=== PATIENT | female | born 1965 | race Caucasian/White ===

== ENCOUNTER → 2020-04-01 | Outpatient (CLI) | payer OTHER ==
[2020-04-01 11:26] LABS: BASOPHILS ABSOLUTE AUTO 0.03 K/mm3 (0.00-0.23); BASOPHILS PERCENT AUTO 1 % (0-2); EOSINOPHILS ABSOLUTE AUTO 0.07 K/mm3 (0.00-0.68); EOSINOPHILS PERCENT AUTO 1 % (0-6); Hematocrit 31.1 % (33.0-51.0); IMMATURE GRAN ABSOLUTE AUTO 0.02 K/mm3 (0.00-0.10); IMMATURE GRAN PERCENT AUTO 0 % (0-1); LYMPHOCYTES ABSOLUTE AUTO 0.46 K/mm3 (0.84-5.20); LYMPHOCYTES PERCENT AUTO 8 % (21-46); MONOCYTES ABSOLUTE AUTO 0.39 K/mm3 (0.16-1.47); MONOCYTES PERCENT AUTO 7 % (4-13); Mean Corpuscular HGB 31.6 pg (26.0-34.0); Mean Corpuscular HGB Conc 32.2 g/dL (31.5-36.5); Mean Corpuscular Volume 98 fL (80-100); NEUTROPHILS ABSOLUTE AUTO 4.73 K/mm3 (1.96-9.15); NEUTROPHILS PERCENT AUTO 83 % (41-73); Platelet Count 129 K/mm3 (150-400); RDW Coefficient Variation 12.4 % (11.7-14.2); RDW Standard Deviation 45.1 fL (35.1-46.3); Red Blood Cell Count 3.16 M/mm3 (3.80-5.20)
[2020-04-03 18:41] LABS: Percent Saturation 28.5 % (15.0-50.0)
== END | disposition home or self-care (01) ==
LOC: LAB 10:30 → LAB SHORT 10:30
PROVIDERS: Internal Medicine
DX: N18.6 End stage renal disease (principal)
CPT/HCPCS: 82728; 83540; 83550; 85025

== ENCOUNTER 2020-06-13 04:50 | Inpatient (IN) | payer OTHER ==
[~2020-06-13] VITALS: Ht 152.4 cm; Wt 54.0 kg
[~2020-06-13 04:50] MED LIST: ALBU2.5V5 INH; AMLO5 PT; CARV3.125 PT; LEFL20 PT; LEVFLO500 PT; METH10 PO; METH40 PT; OMEP20ER; Prednisone10 MG PO; SYMBICORT 80-10.2 GM INH; TORS10 PT; XELJANZ XR11 MG; XELJANZ XR11 MG PO
[2020-06-13 05:09] LABS: PCO2 Arterial 66.2 mmHg (35-45); PO2 Arterial 73.6 mmHg (80-100); pH Blood Arterial 7.26 (7.35-7.45)
[2020-06-13 05:13] LABS: BASOPHILS ABSOLUTE AUTO 0.06 K/mm3 (0.00-0.23); BASOPHILS PERCENT AUTO 0 % (0-2); EOSINOPHILS ABSOLUTE AUTO 0.08 K/mm3 (0.00-0.68); EOSINOPHILS PERCENT AUTO 0 % (0-6); Hematocrit 45.7 % (33.0-51.0); Hemoglobin 14.1 g/dL (11.5-16.0); IMMATURE GRAN ABSOLUTE AUTO 0.28 K/mm3 (0.00-0.10); IMMATURE GRAN PERCENT AUTO 1 % (0-1); LYMPHOCYTES ABSOLUTE AUTO 1.78 K/mm3 (0.84-5.20); LYMPHOCYTES PERCENT AUTO 7 % (21-46); MONOCYTES ABSOLUTE AUTO 1.33 K/mm3 (0.16-1.47); MONOCYTES PERCENT AUTO 5 % (4-13); Mean Corpuscular HGB 31.4 pg (26.0-34.0); Mean Corpuscular HGB Conc 30.9 g/dL (31.5-36.5); Mean Corpuscular Volume 102 fL (80-100); Mean Platelet Volume 11.6 fL (9.1-12.4); NEUTROPHILS ABSOLUTE AUTO 23.39 K/mm3 (1.96-9.15); NEUTROPHILS PERCENT AUTO 87 % (41-73); Platelet Count 220 K/mm3 (150-400); RDW Coefficient Variation 12.7 % (11.7-14.2); Red Blood Cell Count 4.49 M/mm3 (3.80-5.20); White Blood Cell Count 26.92 K/mm3 (4.00-11.30)
[2020-06-13 05:54] LABS: Albumin, Blood 3.1 g/dL (3.4-5.0); Albumin/Globulin Ratio 0.7 (0.8-1.8); Bilirubin, Total 0.4 mg/dL (0.1-1.0); Bun/Creatinine Ratio 21.3 (12.0-20.0); Calcium, Blood 8.8 mg/dL (8.5-10.1); Creatinine, Blood 3.05 mg/dL (0.40-1.00); Globulin, Blood 4.6 g/dL (2.2-4.0); Potassium, Blood 4.9 mmol/L (3.5-5.5); Total Protein, Blood 7.7 g/dL (6.4-8.2)
--- NOTE | 2020-06-13 09:15 | NUR ---
INITIAL ASSESSMENT PATIENT ARRIVED TO UNIT AT 0910. PATIENT ALERT AND ORIENTED X 4, AFEBRILE. PATIENT HAS QUIET, RASPY VOICE. PATIENT SBA. LUNGS DIMINISHED T/O. PATIENT SATTING 90% AND GREATER ON 4 L OXYMIZER. SOB NOTED WITH EXERTION. SR/ ST, HR LOW 100S. SBP 140S. TRACE BLE EDEMA NOTED. GI WNL. WNL. FISTULA TO L UPPER ARM- + BRUIT AND THRILL. NS INFUSING AT 75 MLS/ HOUR. BED LOW, CALL LIGHT IN REACH. PATIENT ORIENTED TO UNIT, ROOM AND CALL LIGHT. PATIENT HAS NO COMPLAINTS AT THIS TIME. WILL CONTINUE TO MONITOR.
[2020-06-13 10:35] LABS: PCO2 Arterial 46.8 mmHg (35-45); PO2 Arterial 64.7 mmHg (80-100); pH Blood Arterial 7.36 (7.35-7.45)
[2020-06-13 11:28] LABS: Adenovirus Not Detected (NOT DETECT); Bordetella pertussis Not Detected (NOT DETECT); Chlamydophila pneumoniae Not Detected (NOT DETECT); Coronavirus 229E Not Detected (NOT DETECT); Coronavirus HKU1 Not Detected (NOT DETECT); Coronavirus NL63 Not Detected (NOT DETECT); Coronavirus OC43 Not Detected (NOT DETECT); Human Metapneumovirus Not Detected (NOT DETECT); Human Rhinovirus/Enterovirus Not Detected (NOT DETECT); Influenza A/2009-H1 Not Detected (NOT DETECT); Influenza A/H1 Not Detected (NOT DETECT); Influenza A/H3 Not Detected (NOT DETECT); Influenza B Not Detected (NOT DETECT); Mycoplasma pneumoniae Not Detected (NOT DETECT); Parainfluenza Virus 1 Not Detected (NOT DETECT); Parainfluenza Virus 2 Not Detected (NOT DETECT); Parainfluenza Virus 3 Not Detected (NOT DETECT); Parainfluenza Virus 4 Not Detected (NOT DETECT); Respiratory Syncytial Virus Not Detected (NOT DETECT); SARS-Cov-2 (COVID-19), BioFire Not Detected (NOT DETECT)
--- NOTE | 2020-06-13 11:33 | NUR ---
PATIENT AFEBRILE. PATIENT SATTING 90% AND GREATER ON 3 L NC. SBP IN THE 150S. HR IN THE 90S. NO OTHER ACUTE CHANGES TO NOTE ON AT THIS TIME.
--- NOTE | 2020-06-13 15:45 | NUR ---
PATIENT AFEBRILE. SBP IN THE 140S. HR IN THE 90S. NO OTHER ACUTE CHANGES TO NOTE ON AT THIS TIME. NO COMPLAINTS.
--- NOTE | 2020-06-13 18:48 | NUR ---
SHIFT SUMMARY PATIENT REMAINED ALERT AND ORIENTED X 4. PATIENT REMAINED AFEBRILE. PATIENT DECREASED FROM 4 L OXYMIZER AT BEGINNING OF SHIFT TO 3 L NC BY END OF SHIFT. LUNGS REMAINED DIMINISHED T/O. PATIENT REMAINED SR TO ST, HR 90S TO LOW 100S. SBP 140S TO 150S. GI WNL. PATIENT HAS VERY LARGE APPETITE. PATIENT HAD SPEECH THERAPY EVAL AND PLACED ON REGULAR, MECHANICAL SOFT DIET. WNL. PATIENT SBA TO BSC. NS REMAINS INFUSING AT 75 MLS/ HOUR. PATIENT RECEIVED CLINDAMYCIN IV THIS SHIFT. PATIENT HAS NO COMPLAINTS AT THIS TIME. BED LOW, CALL LIGHT IN REACH. REPORT WILL BE GIVEN TO ONCOMING TELEMARKETING REPRESENTATIVE NURSE SHORTLY.
[2020-06-14 04:46] LABS: BASOPHILS ABSOLUTE AUTO 0.01 K/mm3 (0.00-0.23); BASOPHILS PERCENT AUTO 0 % (0-2); EOSINOPHILS PERCENT AUTO 0 % (0-6); Hematocrit 38.8 % (33.0-51.0); Hemoglobin 11.8 g/dL (11.5-16.0); IMMATURE GRAN PERCENT AUTO 1 % (0-1); LYMPHOCYTES ABSOLUTE AUTO 0.16 K/mm3 (0.84-5.20); LYMPHOCYTES PERCENT AUTO 2 % (21-46); MONOCYTES PERCENT AUTO 2 % (4-13); Mean Corpuscular HGB 31.1 pg (26.0-34.0); Mean Corpuscular HGB Conc 30.4 g/dL (31.5-36.5); Mean Corpuscular Volume 102 fL (80-100); Mean Platelet Volume 11.8 fL (9.1-12.4); NEUTROPHILS ABSOLUTE AUTO 10.04 K/mm3 (1.96-9.15); NEUTROPHILS PERCENT AUTO 96 % (41-73); Platelet Count 131 K/mm3 (150-400); RDW Coefficient Variation 12.7 % (11.7-14.2); RDW Standard Deviation 48.1 fL (35.1-46.3); White Blood Cell Count 10.51 K/mm3 (4.00-11.30)
[2020-06-14 05:02] LABS: Albumin, Blood 2.6 g/dL (3.4-5.0); Albumin/Globulin Ratio 0.7 (0.8-1.8); Bilirubin, Total 0.3 mg/dL (0.1-1.0); Bun/Creatinine Ratio 21.4 (12.0-20.0); Calcium, Blood 8.2 mg/dL (8.5-10.1); Creatinine, Blood 3.09 mg/dL (0.40-1.00); Globulin, Blood 3.7 g/dL (2.2-4.0); Potassium, Blood 5.8 mmol/L (3.5-5.5); Total Protein, Blood 6.3 g/dL (6.4-8.2)
--- NOTE | 2020-06-14 06:51 | NUR ---
patient with an extensive medical history [place] for shortness of breath in respiratory distress who is recently discharged for pneumonia. She was admitted for a COPD exacerbation and placed on Covid rule out precautions. The patient had no acute changes or events overnight, the patient remain stable. Plan for this patient is a speech language pathology evaluation to evaluate for possible aspiration.
--- NOTE | 2020-06-14 18:34 | NUR ---
SHIFT SUMMARY PT A&Ox4; CALM AND COOPERATIVE WITH CARE. PT VOICE HOARSE R/T THROAT CANCER. PT UP IN CHAIR THIS AM, AND RESTING IN BED FOR THE REST OF THE DAY; PT UP IND TO BSC AND SBA IN ROOM. PT REPORT HEADACHE DURING DIALYSIS; MEDICATION x1 WITH TYLENOL. PT DENIES CHEST PAIN/PRESSURE, NAUSEA AND DIZZINESS. SOB WITH EXERTION; SPO2 >90% ON 2-3L O2 VIA NC DURING SHIFT. DIALYSIS THIS AM. ELEAVTED BP NOTED. OTHER VSS. NO OTHER ACUTE CHANGES NOTED DURING SHIFT. WILL CONTINUE TO MONITOR UNTIL REPORT GIVEN TO ONCOMING RN.
--- NOTE | 2020-06-15 05:45 | NUR ---
SHIFT SUMMARY PT A&O; ELEVATED BP THIS AM, HYDRALYZINE ADMINISTERED; OTHERWISE VSS; PT DENIES CHEST PAIN; O2 SATS >93 ON 1L NC; PT C/O HEADACHE THIS AM, TYLENOL GIVEN; ICE PACK OFFERED; PT INDEPENDENT TO BSC; PO SNACKS BROUGHT TO PT PRN; PT EDUCATED ON ASPIRATION RISKS, NO STRAWS AND TAKING MEDS W/ APPLESAUCE; PT WATCHING TV AND TALKING TO FAMILY ON CELL PHONE; NO DISTRESS NOTED; NO ACUTE CHANGES THIS SHIFT; CALL LIGHT IN REACH; BED IN LOWEST POSITION; WILL CONTINUE TO MONITOR CLOSELY UNTIL HAND OFF TO DAY SHIFT RN.
--- NOTE | 2020-06-15 07:30 | NUR ---
ASSUMED CARE: PT SITTING AT SIDE OF BED WITH MANAGER PRIMARY ASSISTING TO RESTROOM. NC 1L IN AT THIS TIME. NO ACUTE NEEDS OR CONCERNS
[2020-06-15 09:11] LABS: Albumin, Blood 2.5 g/dL (3.4-5.0); Anion Gap 7 mmol/L (6-16); Blood Urea Nitrogen 46 mg/dL (8-24); Bun/Creatinine Ratio 19.8 (12.0-20.0); CO2, Blood 28 mmol/L (21-32); Calcium, Blood 8.4 mg/dL (8.5-10.1); Chloride, Blood 95 mmol/L (98-108); Creatinine, Blood 2.32 mg/dL (0.40-1.00); Glomerular Filtration Rate 23 (60-); Glucose, Blood 170 mg/dL (70-99); Phosphorus, Blood 3.6 mg/dL (2.5-4.9); Potassium, Blood 5.1 mmol/L (3.5-5.5); Sodium, Blood 130 mmol/L (136-145)
--- NOTE | 2020-06-15 12:13 | NUR ---
CERTIFIED ENDOSCOPY TECHNICIAN FROM MEDICAL FLOOR AT BEDSIDE ATTEMPTING POWERGLIDE AT THIS TIME.
--- NOTE | 2020-06-15 16:00 | NUR ---
PT TAKEN TO DAY SURGERY VIA BED BY RN
--- NOTE | 2020-06-15 16:40 | NUR ---
06/15/20 NIKOLE GUZMAN History, Chart, Medications and Allergies reviewed before start of procedure. 3-LEAD EKG REVIEWED WITH PHYSICIAN PRIOR TO START OF PROCEDURE. O2 VIA N/C INTACT THROUGHOUT SEDATION/PROCEDURE. MONITOR INTACT WITH CONTINUOUS PULSE OXIMETRY AND INTERMITTENT BP. MAC WITH DR. RUBIN.
--- NOTE | 2020-06-15 17:55 | NUR ---
SHIFT SUMMARY: PT RETURNED FROM DAY SURGERY WITH PEG TUBE IN PLACE, MINIMAL BLEEDING NOTED ON DRESSING. CALL TO DR LAWRENCE TO UPDATE HER. DR COUGHLIN STATES PEG CAN BE USED AFTER 6 HOURS BUT DIETARY GONE FOR THE DAY TO ORDER TUBE FEED. DR LAWRENCE STATES FEED TO WAIT UNTIL AM SO THAT DIETARY CAN MAKE THEIR RECOMMENDATION. PERIPHERAL NUTRITION TO CONTINUE THROUGHOUT THE NIGHT.
[2020-06-16 04:49] LABS: BASOPHILS ABSOLUTE AUTO 0.02 K/mm3 (0.00-0.23); BASOPHILS PERCENT AUTO 0 % (0-2); EOSINOPHILS PERCENT AUTO 0 % (0-6); Hematocrit 35.7 % (33.0-51.0); Hemoglobin 11.5 g/dL (11.5-16.0); IMMATURE GRAN ABSOLUTE AUTO 0.13 K/mm3 (0.00-0.10); IMMATURE GRAN PERCENT AUTO 1 % (0-1); LYMPHOCYTES ABSOLUTE AUTO 0.12 K/mm3 (0.84-5.20); LYMPHOCYTES PERCENT AUTO 1 % (21-46); MONOCYTES ABSOLUTE AUTO 0.35 K/mm3 (0.16-1.47); MONOCYTES PERCENT AUTO 3 % (4-13); Mean Corpuscular HGB 31.2 pg (26.0-34.0); Mean Corpuscular HGB Conc 32.2 g/dL (31.5-36.5); NEUTROPHILS ABSOLUTE AUTO 12.42 K/mm3 (1.96-9.15); NEUTROPHILS PERCENT AUTO 95 % (41-73); Platelet Count 142 K/mm3 (150-400); RDW Coefficient Variation 12.9 % (11.7-14.2); Red Blood Cell Count 3.69 M/mm3 (3.80-5.20); White Blood Cell Count 13.04 K/mm3 (4.00-11.30)
[2020-06-16 04:56] LABS: Mean Corpuscular Volume 97 fL (80-100)
[2020-06-16 05:12] LABS: Albumin, Blood 2.4 g/dL (3.4-5.0); Anion Gap 9 mmol/L (6-16); Blood Urea Nitrogen 65 mg/dL (8-24); Bun/Creatinine Ratio 23.2 (12.0-20.0); CO2, Blood 27 mmol/L (21-32); Chloride, Blood 96 mmol/L (98-108); Glomerular Filtration Rate 18 (60-); Glucose, Blood 106 mg/dL (70-99); Magnesium, Blood 1.7 mg/dL (1.6-2.4); Phosphorus, Blood 4.9 mg/dL (2.5-4.9); Potassium, Blood 4.9 mmol/L (3.5-5.5); Sodium, Blood 132 mmol/L (136-145); Triglycerides 285 mg/dL (30-160)
--- NOTE | 2020-06-16 05:57 | NUR ---
SHIFT SUMMARY PT A&O; POST PEG TUBE PLACEMENT; PT EXPERIENCING BLEEDING FROM SITE T/O SHIFT; REINFORCEMENT OF DRESSING AND COMPLETE DRESSING CHANGE PERFORMED THIS SHIFT BY DIRECTOR HOSPICE OPERATIONS; 2LB SAND BAG PLACED FOR PRESSURE; NOTIFIED APPROXIMATELY @ 7346; ORDER TO ADJUST FLANGE ON TUBE AT INCISION SITE; BLEEDING DID SLOW; PT C/O HEADACHE T/O SHIFT; TORADOL, IMITREX, AND ICE PACK PROVIDED; ELEVATED BP T/O SHIFT; HYDRALIZINE ADMINISTERED PER EMAR; NORVASC ADMINISTERED LATE IN SHIFT THROUGH PEG TUBE; PT C/O HEARTBURN THIS AM; PT UP TO BSC W/ SBA; UP IN CHAIR W/ WARM BLANKETS THIS AM; CALL LIGHT IN REACH; WILL CONTINUE TO MONITOR CLOSELY UNTIL HAND OFF TO DAY SHIFT RN.
--- NOTE | 2020-06-16 07:00 | NUR ---
ASSUMED CARE: PT RESTING QUIETLY. INSPECTOR HAIRSPRING AT BEDSIDE. PT ASKING ABOUT FEEDING. NO FURTHER NEEDS OR CONCERNS. NSR ON TELE, ON RA
--- NOTE | 2020-06-16 09:00 | NUR ---
CALL TO DIETARY TO RELAY THAT PT'S PEG TUBE IS USEABLE. DIETARY TO PLACE ORDERS.
--- NOTE | 2020-06-16 10:09 | NUR ---
ADMINISTERED TRAMADOL PER ORDERS FOR PT'S CONTINUED HEADACHE PAIN. PT TAKEN TO DIALYSIS. DIALYSIS NURSE CALLED SHORTLY AFTER THAT PT IS COMPLAINING OF ITCHING. WILL CALL DR LAWRENCE.
--- NOTE | 2020-06-16 13:48 | NUR ---
PT RETURNED FROM DIALYSIS AND STATED HER PEG TUBE SITE WAS BLEEDING. CLEANED SITE AND CHANGED DRESSING USING ABD PAD, GAUZE, AND PRESSURE TAPE. NO ACUTE BLEEDING NOTED AT THIS TIME. DR CLINE AT BEDSIDE. TUBE FEED STARTED PER DIETARY RECOMMENDATIONS.
--- NOTE | 2020-06-16 14:26 | NUR ---
Pt resting in bed upon arrival. Pt denies pain, dyspnea, nausea, and anxiety at this time. Engaged in therapeutic listening as Pt reports not having anxiety now but expects some anxiety once home. She reports the anxiety may happen due to not having the staff here at the hospital that makes her feel safe with the tube feedings. Continued therapeutic listening and answered questions. Gentle education regarding the importance of compliance and routine F/U with PCP. Discussed the potential of tube feedings being permanent. Pt reports plan to keep a positive attitude and states "At least I'm alive". Continued therapeutic listening. Pt expresses appreciation of visit and report no other concerns. Palliative Care will remain available.
--- NOTE | 2020-06-16 15:15 | NUR ---
DR LAWRENCE AWARE THAT PT'S PEG TUBE SITE REBLED. STATES THAT IF BLEEDING GETS BAD OR UNABLE TO STOP, CONTACT DR COUGHLIN FOR FURTHER INSTRUCTIONS. MEDICAL SCIENTIFIC LIAISON AWARE
--- NOTE | 2020-06-16 19:16 | NUR ---
SHIFT SUMMARY: PT HAS BEEN RESTING IN BED AND AMBULATING IN ROOM WITH 1 ASSIST. STATES TRAMADOL HELPED FOR HEADACHE X1 TIME DOSE. PEG SITE DRESSING CHANGED FOR BLEEDING. TUBE FEED RUNNING WITH MINIMAL RESIDUAL. INFORMATION FAXED TO PHARMACY FOR TUBE FEED TO BE SET UP AT HOME. POSSIBLE DC TOMORROW
--- NOTE | 2020-06-16 19:55 | NUR ---
PATIENT REPORTS HEADACHE; REPORTS SHE WOULD "TAKE ATIVAN" IF SHE WAS AT HOME. IV ATIVAN GIVEN PER ORDER ABOUT AN HOUR AGO.
--- NOTE | 2020-06-16 20:55 | NUR ---
PATIENT REPORTS HEADACHE 07/29; PATIENT REPORTS SHE WOULD TAKE "ATIVAN" FOR HER HEADACHE IF SHE WERE AT HOME. PATIENT REFUSES PRN IMITREX; REPORTS MAKES HEADACHE WORSE; REFUSED COOL WASHCLOTH; REPORTS SHE ALREADY TRIED THAT. WILL CALL HOSPITALIST AND UPDATE.
--- NOTE | 2020-06-16 21:29 | NUR ---
CALLED CY REED TO REPORT PATIENT'S 10/10 HEADACHE; PATIENT REPORTS HEADACHE DECREASED FROM 10 TO 9 WITH IV ATIVAN GIVEN BY MANAGER PROGRAM MANAGEMENT. [facility] WILL LOOK UP PATIENT AND PLACE ORDERS. PATIENTS CALLED AND REPORTED TO [facility] THAT PATIENT'S HEADACHE HAS NOT BEEN ADDRESSED AND WILL BE IN FIRST THING.
--- NOTE | 2020-06-17 03:42 | NUR ---
ASSUMED CARE OF PATIENT AT APPROXIMATELY 1910 FROM SHELLEY Mchugh RN. PATIENT ALERT AND ORIENTED X4; SBA OUT OF BED TO BEDSIDE COMMODE. PATIENT WALKED PCU/ICU LOOP INDEPENDENTLY TONIGHT. PATIENT REPORTS CHRONIC PAIN AND HEADACHE; SEE PREVIOUS NOTE. ONE TIME DOSE OF ATIVAN HELPED PATIENT; DENIED PAIN WITH MIDNIGHT VITAL SIGNS. NPO; CONTINOUS TUBE FEEDING; INCREASED RATE FROM 20 TO 35 AT 2200; TOLERATING WELL; LITTLE RESIDUALS; MEDS CRUSHED IN PEG TUBE. DIALYSIS FISTUAL LEFT ARM. PG RIGHT ARM S/L. NSR ON TELE; OXYGEN SATURATION ABOVE 90% ON 1LPM VIA NC. PATIENT CURRENTLY RESTING IN BED; CALL LIGHT IN REACH; BED IN LOWEST POSISTION; BED ALARM ON; WILL CONTINUE TO MONITOR AND ASSESS UNTIL END OF SHIFT.
[2020-06-17 04:49] LABS: Magnesium, Blood 1.8 mg/dL (1.6-2.4)
[2020-06-17 04:51] LABS: Bun/Creatinine Ratio 19.8 (12.0-20.0); Calcium, Blood 8.1 mg/dL (8.5-10.1); Creatinine, Blood 2.32 mg/dL (0.40-1.00); Potassium, Blood 4.4 mmol/L (3.5-5.5)
[2020-06-17] MEDS ORDERED: ACET325 PO (12:22)
[2020-06-17] MEDS ORDERED: BENMENLOZ PO (12:24)
[2020-06-17] MEDS ORDERED: Q-Tussin100 MG/5 M PO (12:25)
[2020-06-17] MEDS ORDERED: Benadryl Itch28.3 G1 TOP (12:26)
--- NOTE | 2020-06-17 13:25 | NUR ---
PT DISCAHRGED TO [place] TODAY WITH DISCHARGE ORDERS. PT WAS SCHEDULED TO HAVE DIALYSIS TODAY PT REFUSED, PT STATED SHE JUST HAD ONE YESTERDAY AND WAS TOLD BY PROVIDER THAT HER NEXT SESSION WILL BE FRIDAY. DR LAWRENCE IS AWARE. PT WAS INSTRUCTED ABOUT FEEDING TUBE, A PACKET SENT WITH PT FROM [employer] ABOUT FORMULA FEEDING AND INSTRUCTION WELL FOOD AND DESIRED AMOUNT. PT VERBALIZED UNDERSTANDING AT BEDSIDE. POWERGLIDE DISCONTINUED. PT AWARE OF FOLLOW-UP APPOINTMENTS AND DIALYSIS TREAMENT SCHEDULES, NEW MEDS INSTRUCTED ACCOMPANIED BY VIA WHEELCHAIR.
== END 2020-06-17 12:41 | disposition home health service (06) | DRG 177 ==
LOC: ER 04:50 → PCU 06:13
PROVIDERS: Emergency Medicine; Internal Medicine; ADMIT Internal Medicine
PROC: 5A09357 Assistance with Respiratory Ventilation, Less than 24 Consecutive Hours, Continuous Positive Airway Pressure (ICD-10-PCS; principal; 2020-06-13)
PROC: 0DH63UZ Insertion of Feeding Device into Stomach, Percutaneous Approach (ICD-10-PCS; 2020-06-15)
PROC: 5A1D70Z Performance of Urinary Filtration, Intermittent, Less than 6 Hours Per Day (ICD-10-PCS; 2020-06-16)
DX: J69.0 Pneumonitis due to inhalation of food and vomit (principal); J96.01 Acute respiratory failure with hypoxia; N18.6 End stage renal disease; J96.02 Acute respiratory failure with hypercapnia; R64 Cachexia; J44.1 Chronic obstructive pulmonary disease with (acute) exacerbation; I12.0 Hypertensive chronic kidney disease with stage 5 chronic kidney disease or end stage renal disease; Z20.828 Contact with and (suspected) exposure to other viral communicable diseases; K21.9 Gastro-esophageal reflux disease without esophagitis; M06.9 Rheumatoid arthritis, unspecified; G43.909 Migraine, unspecified, not intractable, without status migrainosus; Z68.20 Body mass index [BMI] 20.0-20.9, adult; Z66 Do not resuscitate; E87.5 Hyperkalemia; Z85.21 Personal history of malignant neoplasm of larynx; F41.9 Anxiety disorder, unspecified; F17.210 Nicotine dependence, cigarettes, uncomplicated
CPT/HCPCS: 0202U; 36415; 36600; 71045; 74230; 80048; 80053; 80069; 82803; 82947; 83605; 83735; 83880; 84100; 84145; 84478; 85025; 87040; 87070; 87205; 92610; 92611; 93005; 93010; 94010; 94640; 94644; 94660; 94664; 94667; 94760; 94762; 96361; 96365; 96375; 97110; 97161; 97165; 97535; 98960; 99285-25; 99406; A9270; C1751; C1769; J0360; J1644; J1650; J1885; J1956; J2060; J2704; J2930; J3030; J7030; J7050; U0003

== ENCOUNTER 2020-08-10 15:44 | Inpatient (IN) | payer OTHER ==
[~2020-08-10] VITALS: Ht 152.4 cm; Wt 46.3 kg
[~2020-08-10 15:44] MED LIST changes: +ACET325 PO; +BENMENLOZ PO; +Benadryl Itch28.3 G1 TOP; +Q-Tussin100 MG/5 M PO
[2020-08-10 16:48] LABS: BASOPHILS ABSOLUTE AUTO 0.04 K/mm3 (0.00-0.23); BASOPHILS PERCENT AUTO 0 % (0-2); EOSINOPHILS PERCENT AUTO 0 % (0-6); Hematocrit 36.3 % (33.0-51.0); Hemoglobin 11.4 g/dL (11.5-16.0); IMMATURE GRAN ABSOLUTE AUTO 0.05 K/mm3 (0.00-0.10); IMMATURE GRAN PERCENT AUTO 0 % (0-1); LYMPHOCYTES ABSOLUTE AUTO 0.19 K/mm3 (0.84-5.20); LYMPHOCYTES PERCENT AUTO 2 % (21-46); MONOCYTES ABSOLUTE AUTO 0.45 K/mm3 (0.16-1.47); MONOCYTES PERCENT AUTO 4 % (4-13); Mean Corpuscular HGB 32.3 pg (26.0-34.0); Mean Corpuscular HGB Conc 31.4 g/dL (31.5-36.5); Mean Corpuscular Volume 103 fL (80-100); Mean Platelet Volume 12.8 fL (9.1-12.4); NEUTROPHILS ABSOLUTE AUTO 10.61 K/mm3 (1.96-9.15); NEUTROPHILS PERCENT AUTO 94 % (41-73); Platelet Count 109 K/mm3 (150-400); RDW Coefficient Variation 13.5 % (11.7-14.2); RDW Standard Deviation 51.2 fL (35.1-46.3); Red Blood Cell Count 3.53 M/mm3 (3.80-5.20); White Blood Cell Count 11.34 K/mm3 (4.00-11.30)
[2020-08-10 17:13] LABS: Alanine Aminotransfer (ALT/SGP 23 U/L (12-78); Albumin, Blood 3.2 g/dL (3.4-5.0); Albumin/Globulin Ratio 0.9 (0.8-1.8); Alk Phos 78 U/L (50-136); Anion Gap 3 mmol/L (6-16); Aspartate Aminotrans (AST/SGOT 21 U/L (12-37); Bilirubin, Total 0.3 mg/dL (0.1-1.0); Blood Urea Nitrogen 15 mg/dL (8-24); Bun/Creatinine Ratio 11.7 (12.0-20.0); CO2, Blood 40 mmol/L (21-32); Chloride, Blood 94 mmol/L (98-108); Creatinine, Blood 1.28 mg/dL (0.40-1.00); Globulin, Blood 3.6 g/dL (2.2-4.0); Glomerular Filtration Rate 46 (60-); Glucose, Blood 192 mg/dL (70-99); Potassium, Blood 3.5 mmol/L (3.5-5.5); Sodium, Blood 137 mmol/L (136-145); Total Protein, Blood 6.8 g/dL (6.4-8.2); Troponin I <0.015 ng/mL (0.000-0.040)
[2020-08-10 17:54] LABS: PCO2 Arterial 65.2 mmHg (35-45); PO2 Arterial 53.9 mmHg (80-100)
[2020-08-11 01:00] LABS: Bun/Creatinine Ratio 13.7 (12.0-20.0); Calcium, Blood 8.5 mg/dL (8.5-10.1); Creatinine, Blood 1.83 mg/dL (0.40-1.00); Potassium, Blood 4.2 mmol/L (3.5-5.5)
--- NOTE | 2020-08-11 05:43 | NUR ---
SHIFT SUMMARY PT A&O; VSS; DENIES CHEST PAIN; NSR NOTED ON TELE; O2 SATS >93 ON 3L NC; PT STATES SHE IS A HANK, SMOKING APPROXIMATELY 5 CIGARETTES / DAY; PT HAS DRY NON-PRODUCTIVE COUGH; PT CALL APPROPRIATELY; SBA TO BSC; EKG THIS AM, STRIP PLACED IN CHART; CALL LIGHT IN REACH; BED IN LOWEST POSITION; WILL CONTINUE TO MONITOR CLOSELY UNTIL HAND OFF TO DAY SHIFT RN.
--- NOTE | 2020-08-11 09:31 | NUR ---
MORNING MEDS CRUSHED AND GIVEN THROUGH PEG TUBE. FLUSHED WITH 30ML OF WATER BEFORE AND AFTER. DR. CLINE IN TO SEE PT AT ABOUT 0915, PLAN FOR DIALYSIS TODAY. WILL CTM PT STATUS
--- NOTE | 2020-08-11 11:11 | NUR ---
PT GIVEN BOLUS TUBE FEEDING (NEPRO) AT ABOUT 1030 VIA PEG TUBE. 357ML INSTILLED. PT REPORTS FEELING FULL, WILL CTM. PT REPORTS FEEDINGS AT HOME ABOUT EVERY 3 HRS.
--- NOTE | 2020-08-11 13:42 | NUR ---
pt alert and no complaints of pain. tolerated needle placemnt well. no repitory stress noted pt chronic disease states she is at good tolerance today.
--- NOTE | 2020-08-11 14:56 | NUR ---
monitor site and pt until staff returns pt to room
--- NOTE | 2020-08-11 15:09 | NUR ---
pt stating sxhe is feeling better site stable retuned to room report given to pt bedside nurse.
--- NOTE | 2020-08-11 18:19 | NUR ---
AT ABOUT 1600 PT RETURNED TO ROOM FROM DIALYSIS. ATTEMPTED TO START IV ANTIBIOTICS, X2 IV PT HAS ARE NOT FLUSHING AND CAUSING PT PAIN. IV'S DC'D. ATTEMPTED TO RESTART IV, WITHOUT SUCCESS. NELLY LOFT WORKER APPRENTICE MADE AWARE AND WILL ATTEMPT, WILL CTM.
--- NOTE | 2020-08-11 18:28 | NUR ---
SUMMARY: PT ADMITTED WITH RESP FAILURE. A/O, CALLS FOR ASSISTANCE. CONTIUES TO NEED 3L O2, DROPS TO 80% SP02 WHEN ON RA. PT HAVING OCCASIONAL WHEEZE AND STRIDOR, IMPROVED WITH NEB TX, SEE EMAR AND PT HX. PEG TUBE FEEDING RESUMED TODAY. PT DID HAVE EMESIS TONIGHT AND REPORTED ACID REFLUX, WILL MAKE NOC RN AWARE. PT RECEIVED DIALYSIS TODAY AND REPORTED "NOT FEELING WELL" ENOUGH TO COMPLETE THE 2 HOURS. REPORTED FEELING BETTER ON ARRIVAL BACK TO ROOM. OCCASIONAL HTN WITH MOVEMENT. OTHERWISE VSS AND TELE WNL. PT SAW DR. CLINE TODAY ALONG WITH SPEECH THERAPY AND DIETITION. SEE NOTES. WILL CTM AND REPORT TO KASHIF RN
[2020-08-11] MEDS ORDERED: ROPI.25 PT (21:11)
--- NOTE | 2020-08-12 05:05 | NUR ---
ASSSUMED CARE OF PATIENT AT APPROXIMATELY 1905 FROM QUEENIE Esquivel RN. PATIENT ASLEEP DURING BEDISDE REPORT; WAKES EASILY TO VERBAL STIMULUS. PATIENT REPORTS TENDER THROAT; DENIES PAIN OTHERWISE. PATIENT DENIES NUMBNESS, TINGLING, DIZZINESS OR NAUSEA. NSR ON TELE; OXYGEN SATURATION ABOVE 90% ON 3LPM VIA NC TITRATED DOWN TO 2LPM VIA NC CURRENTLY. PATIENT COMPLAINED OF RESTLESS LEGS AT ONE POINT; DISCUSSED WITH HOSPITALIST; ORDERS FOR HOME MEDICATION; PATIENT REQUESTED TO WALK HALLWAY; 2 ASSIST. PEG TUBE FOR BOLUS FEEDINGS AND MEDICATIONS. NEW IV PLACED BY WOODEN TANK ERECTOR; PATIENT COMPLAINS OF TENDERNESS WHEN RUNNING IV ABOVE 50MLS/HR; HARD STICK; FISTULA ROSI. PATIENT CURRENTLY RESTING IN BED; CALL LIGHT IN REACH; BED IN LOWEST POSISTION; BED ALARM ON; WILL CONTINUE TO MONITOR AND ASSESS UNTIL END OF SHIFT.
[2020-08-12 09:30] LABS: Calcium, Blood 9.1 mg/dL (8.5-10.1); Creatinine, Blood 2.22 mg/dL (0.40-1.00); Magnesium, Blood 2.1 mg/dL (1.6-2.4); Potassium, Blood 3.6 mmol/L (3.5-5.5)
[2020-08-12] MEDS ORDERED: PRED20 PT (10:29)
[2020-08-12] MEDS ORDERED: LEVFLO500 PO (10:31)
--- NOTE | 2020-08-12 12:08 | NUR ---
PT DISCHARGED TO HOME TODAY WITH DISCHARGE ORDERS. PT TO CONTINUE ABO AT HOME, HOME O2 EVAL DONE PT NOW REQUIRES 2L AT REST AND 3L WITH EXERCISE. PT HAS DIALYSIS SCHEDULE TODAY AT 12 AT [facility]. AT BEDSIDE ALL BELONGINGS SENT WITH PT, ALL DISCHARGE MEDICATIONS AND INSTRUCTIONS DISCLOSED WITH PT. PEG TUBE REMAINED PATENT AND INTACT FOR BOLUS FEED AND MED ADMINISTRATION. VITALS STABLE. NO OTHER ISSUES OR COMPLAIN PRIOR TO DISCHARGE. PT ACCOMPANIED BY STAVE CUTTING SUPERVISOR VIA WHEELCHAIR FOR TRASNPORT.
== END 2020-08-12 11:50 | disposition home or self-care (01) | DRG 189 ==
LOC: ER 15:44 → EDBEDREQ 20:24 → ERHOLD 20:26 → PCU 20:26
PROVIDERS: Emergency Medicine; Internal Medicine; ADMIT Hospitalist
PROC: 5A1D70Z Performance of Urinary Filtration, Intermittent, Less than 6 Hours Per Day (ICD-10-PCS; principal; 2020-08-11)
DX: J96.01 Acute respiratory failure with hypoxia (principal); N18.6 End stage renal disease; J69.0 Pneumonitis due to inhalation of food and vomit; F11.20 Opioid dependence, uncomplicated; I12.0 Hypertensive chronic kidney disease with stage 5 chronic kidney disease or end stage renal disease; I45.81 Long QT syndrome; Z20.828 Contact with and (suspected) exposure to other viral communicable diseases; Z99.2 Dependence on renal dialysis; K21.9 Gastro-esophageal reflux disease without esophagitis; M06.9 Rheumatoid arthritis, unspecified; F17.200 Nicotine dependence, unspecified, uncomplicated; Z85.21 Personal history of malignant neoplasm of larynx; Z93.1 Gastrostomy status; J43.9 Emphysema, unspecified; T40.3X5A Adverse effect of methadone, initial encounter; Y92.9 Unspecified place or not applicable
CPT/HCPCS: 36415; 36600; 71045; 71260; 80048; 80053; 82803; 83735; 84100; 84145; 84484; 85025; 92610; 93005; 93010; 93306; 94640; 94760; 94761; 96365; 96366; 96368; 99285-25; A9270; A9270-GY; J0696; J1644; J3475; J3480; J7030; J7512; Q9967; U0003

== ENCOUNTER 2020-08-24 00:37 | Observation (INO) | payer OTHER ==
[~2020-08-24] VITALS: Ht 152.4 cm; Wt 44.8 kg
[~2020-08-24 00:37] MED LIST changes: +LEVFLO500 PO; +PRED20 PT; +ROPI.25 PT
[2020-08-24 03:36] LABS: Troponin I 0.114 ng/mL (0.000-0.040)
[2020-08-24 04:48] LABS: Bun/Creatinine Ratio 16.7 (12.0-20.0); Calcium, Blood 9.9 mg/dL (8.5-10.1); Creatinine, Blood 2.88 mg/dL (0.40-1.00); Potassium, Blood 4.5 mmol/L (3.5-5.5)
[2020-08-24 06:01] LABS: BASOPHILS ABSOLUTE AUTO 0.02 K/mm3 (0.00-0.23); BASOPHILS PERCENT AUTO 0 % (0-2); EOSINOPHILS ABSOLUTE AUTO 0.03 K/mm3 (0.00-0.68); EOSINOPHILS PERCENT AUTO 0 % (0-6); Hematocrit 42.1 % (33.0-51.0); Hemoglobin 13.3 g/dL (11.5-16.0); IMMATURE GRAN ABSOLUTE AUTO 0.03 K/mm3 (0.00-0.10); IMMATURE GRAN PERCENT AUTO 0 % (0-1); LYMPHOCYTES ABSOLUTE AUTO 0.71 K/mm3 (0.84-5.20); LYMPHOCYTES PERCENT AUTO 7 % (21-46); MONOCYTES ABSOLUTE AUTO 0.61 K/mm3 (0.16-1.47); MONOCYTES PERCENT AUTO 6 % (4-13); Mean Corpuscular HGB Conc 31.6 g/dL (31.5-36.5); Mean Corpuscular Volume 101 fL (80-100); Mean Platelet Volume 12.5 fL (9.1-12.4); NEUTROPHILS ABSOLUTE AUTO 8.68 K/mm3 (1.96-9.15); NEUTROPHILS PERCENT AUTO 86 % (41-73); Platelet Count 102 K/mm3 (150-400); RDW Coefficient Variation 13.3 % (11.7-14.2); RDW Standard Deviation 50.4 fL (35.1-46.3); Red Blood Cell Count 4.15 M/mm3 (3.80-5.20); White Blood Cell Count 10.08 K/mm3 (4.00-11.30)
[2020-08-24 15:11] LABS: CPK Creatine Kinase 40 U/L (26-193)
--- NOTE | 2020-08-24 18:43 | NUR ---
PT RECEIVING BOLUS FEEDS VIA TUBE FEED, TOLERTING WELL, PT WANTS TO D/C IN THE MORNING AT 0800 IN ORDER TO GET TO AN 09[address] IN [place] RICHARDSON IS AWARE. DIALYSIS IN PROGRESS AT THIS TIME. NO ACUTE CHANGES NOTED THIS SHIFT, WILL CONTINUE TO MONITOR AND REPORT TO ONCOMING RN
--- NOTE | 2020-08-24 19:19 | NUR ---
RECEIVED REPORT FROM RENNY VALERO. PT CURRENTLY IN DIALYSIS. WILL MONITOR AND PROVIDE CARE T/O SHIFT. CALL LT IN REACH.
--- NOTE | 2020-08-24 19:55 | NUR ---
BOLUS FEED GIVEN PER PEG TUBE. NO RESIDUAL. FLUSHED WITH 50 MLS. 237 NEPRO GIVEN BY BOLUS. PT TOLERATED WELL. ZOFRAN GIVEN FOR NAUSEA PRIOR TO BOLUS FEED. PT STATES NAUSEA MUCH BETTER. CALL LT IN REACH.
[2020-08-24 22:34] LABS: CPK Creatine Kinase 29 U/L (26-193)
--- NOTE | 2020-08-24 23:56 | NUR ---
BENADRYL ELIXIR 25 MG GIVEN VIA PT, HX OF ITCHING EPISODES. PT OUT AMBULATING INDEPENDENTLY. STATES THE ITCHINESS HAS DECREASED.
--- NOTE | 2020-08-25 03:59 | NUR ---
SHIFT SUMMARY: PT TOLERATED DIALYSIS DURING SHIFT. MEDS GIVEN PER PEG TUBE. MEDICATED FOR CHRONIC PAIN, NAUSEA AND BENADRYL GIVEN FOR ITCHING EPISODE WITH GOOD RESULTS. AMBULATED IN [place] TO STRETCH LEGS. ONE CARTON OF NEXPRO GIVEN PER PT REQUEST. SINUS RHYTHM ON TELE AT 93. NO ACUTE CHANGES. WILL CONTINUE TO MONITOR AND PROVIDE CARE UNTIL SHIFT REPORT.
[2020-08-25 05:39] LABS: BASOPHILS ABSOLUTE AUTO 0.01 K/mm3 (0.00-0.23); BASOPHILS PERCENT AUTO 0 % (0-2); EOSINOPHILS PERCENT AUTO 0 % (0-6); Hematocrit 41.1 % (33.0-51.0); Hemoglobin 12.9 g/dL (11.5-16.0); IMMATURE GRAN ABSOLUTE AUTO 0.04 K/mm3 (0.00-0.10); IMMATURE GRAN PERCENT AUTO 0 % (0-1); LYMPHOCYTES ABSOLUTE AUTO 0.43 K/mm3 (0.84-5.20); LYMPHOCYTES PERCENT AUTO 4 % (21-46); MONOCYTES ABSOLUTE AUTO 0.14 K/mm3 (0.16-1.47); MONOCYTES PERCENT AUTO 1 % (4-13); Mean Corpuscular HGB 32.1 pg (26.0-34.0); Mean Corpuscular HGB Conc 31.4 g/dL (31.5-36.5); Mean Corpuscular Volume 102 fL (80-100); NEUTROPHILS ABSOLUTE AUTO 9.92 K/mm3 (1.96-9.15); NEUTROPHILS PERCENT AUTO 94 % (41-73); Platelet Count 124 K/mm3 (150-400); RDW Coefficient Variation 13.1 % (11.7-14.2); RDW Standard Deviation 49.5 fL (35.1-46.3); Red Blood Cell Count 4.02 M/mm3 (3.80-5.20); White Blood Cell Count 10.54 K/mm3 (4.00-11.30)
[2020-08-25 05:59] LABS: Albumin, Blood 3.4 g/dL (3.4-5.0); Albumin/Globulin Ratio 0.9 (0.8-1.8); Bilirubin, Total 0.4 mg/dL (0.1-1.0); Bun/Creatinine Ratio 17.4 (12.0-20.0); Calcium, Blood 9.5 mg/dL (8.5-10.1); Creatinine, Blood 2.35 mg/dL (0.40-1.00); Globulin, Blood 3.8 g/dL (2.2-4.0); Magnesium, Blood 2.4 mg/dL (1.6-2.4); Phosphorus, Blood 2.6 mg/dL (2.5-4.9); Potassium, Blood 4.3 mmol/L (3.5-5.5); Total Protein, Blood 7.2 g/dL (6.4-8.2)
[2020-08-25] MEDS ORDERED: LEVFLO500 PT (08:25)
[2020-08-25] MEDS ORDERED: ZEGERID 20 MG1 EACH PT (08:26)
[2020-08-25] MEDS ORDERED: ROBITUSSIN PT (08:28)
[2020-08-25] MEDS ORDERED: DELTASONE20 MG PT (08:29)
--- NOTE | 2020-08-25 08:54 | NUR ---
DISCHARGE DISCHARGE INSTRUCTIONS, MEDICATION LIST AND FOLLOW UP APPOINTMENTS REVIEWED WITH PT. PT INDICATED THAT FOLLOW UP APPOINTMENT WITH CAMP NURSE ALREADY SCHEDULED.. QUESTIONS/CONCERNS ANSWERED. PT AND SPOUSE VERBALLY INDICATED UNDERSTANDING OF ALL INSTRUCTIONS RECEIVED. ESCORTED OUT W/C
== END 2020-08-25 08:45 | disposition home or self-care (01) ==
LOC: ER 00:37 → MEDS 00:38
PROVIDERS: Student in an Organized Health Care Education/Training Program; ADMIT Internal Medicine
DX: J44.0 Chronic obstructive pulmonary disease with (acute) lower respiratory infection (principal); J18.9 Pneumonia, unspecified organism; J44.1 Chronic obstructive pulmonary disease with (acute) exacerbation; J96.21 Acute and chronic respiratory failure with hypoxia; I12.0 Hypertensive chronic kidney disease with stage 5 chronic kidney disease or end stage renal disease; N18.6 End stage renal disease; C32.9 Malignant neoplasm of larynx, unspecified; K21.9 Gastro-esophageal reflux disease without esophagitis; M06.9 Rheumatoid arthritis, unspecified; D69.6 Thrombocytopenia, unspecified; G43.909 Migraine, unspecified, not intractable, without status migrainosus; B19.20 Unspecified viral hepatitis C without hepatic coma; G89.29 Other chronic pain; F17.210 Nicotine dependence, cigarettes, uncomplicated; Z88.0 Allergy status to penicillin; Z88.1 Allergy status to other antibiotic agents; Z79.51 Long term (current) use of inhaled steroids; Z79.52 Long term (current) use of systemic steroids; Z79.899 Other long term (current) drug therapy; Z99.81 Dependence on supplemental oxygen; Z99.2 Dependence on renal dialysis; Z87.01 Personal history of pneumonia (recurrent); Z93.1 Gastrostomy status; Z20.828 Contact with and (suspected) exposure to other viral communicable diseases; Z23 Encounter for immunization
CPT/HCPCS: 36415; 71045; 80048; 80053; 82550; 83735; 84100; 84145; 84484; 85025; 93005; 93010; 94640; 94760; 96372; 96374; 96375; 96376; 99285-25; A9270-GY; G0257; G0378; J1200; J1644; J1956; J2405; J2920; U0004

== ENCOUNTER 2021-03-04 07:52 | Emergency (ER) | payer OTHER ==
[~2021-03-04] VITALS: Ht 152.4 cm; Wt 52.2 kg
[~2021-03-04 07:52] MED LIST changes: +DELTASONE20 MG PT; +ROBITUSSIN PT; +ZEGERID 20 MG1 EACH PT
[2021-03-04 08:33] LABS: BASOPHILS ABSOLUTE AUTO 0.04 K/mm3 (0.00-0.23); BASOPHILS PERCENT AUTO 0 % (0-2); EOSINOPHILS ABSOLUTE AUTO 0.09 K/mm3 (0.00-0.68); EOSINOPHILS PERCENT AUTO 1 % (0-6); Hematocrit 35.3 % (33.0-51.0); IMMATURE GRAN ABSOLUTE AUTO 0.05 K/mm3 (0.00-0.10); IMMATURE GRAN PERCENT AUTO 0 % (0-1); LYMPHOCYTES PERCENT AUTO 4 % (21-46); MONOCYTES ABSOLUTE AUTO 0.83 K/mm3 (0.16-1.47); MONOCYTES PERCENT AUTO 6 % (4-13); Mean Corpuscular HGB 31.9 pg (26.0-34.0); Mean Corpuscular HGB Conc 31.2 g/dL (31.5-36.5); Mean Corpuscular Volume 102 fL (80-100); Mean Platelet Volume 13.5 fL (9.1-12.4); NEUTROPHILS ABSOLUTE AUTO 12.78 K/mm3 (1.96-9.15); NEUTROPHILS PERCENT AUTO 90 % (41-73); Platelet Count 111 K/mm3 (150-400); RDW Coefficient Variation 13.2 % (11.7-14.2); RDW Standard Deviation 49.7 fL (35.1-46.3); Red Blood Cell Count 3.45 M/mm3 (3.80-5.20); White Blood Cell Count 14.29 K/mm3 (4.00-11.30)
[2021-03-04 08:42] LABS: Albumin, Blood 3.6 g/dL (3.4-5.0); Albumin/Globulin Ratio 0.7 (0.8-1.8); Bilirubin, Total 0.5 mg/dL (0.1-1.0); Calcium, Blood 10.6 mg/dL (8.5-10.1); Creatinine, Blood 2.96 mg/dL (0.40-1.00); Potassium, Blood 4.6 mmol/L (3.5-5.5); Total Protein, Blood 8.6 g/dL (6.4-8.2)
[2021-03-04] MEDS ORDERED: PRED20 PO (10:12)
[2021-03-04] MEDS ORDERED: LEVFLO500 PO (10:12)
== END 2021-03-04 10:40 | disposition home or self-care (01) ==
LOC: ER 07:52
PROVIDERS: Emergency Medicine
DX: J44.0 Chronic obstructive pulmonary disease with (acute) lower respiratory infection (principal); J18.9 Pneumonia, unspecified organism; I12.0 Hypertensive chronic kidney disease with stage 5 chronic kidney disease or end stage renal disease; N18.6 End stage renal disease; K21.9 Gastro-esophageal reflux disease without esophagitis; F17.200 Nicotine dependence, unspecified, uncomplicated; Z99.2 Dependence on renal dialysis; Z88.0 Allergy status to penicillin; Z88.1 Allergy status to other antibiotic agents; Z79.899 Other long term (current) drug therapy
CPT/HCPCS: 36415; 71045; 80053; 85025; 93005; 93010; 94640; 96374; 99285-25; A9270; J2930

== ENCOUNTER 2021-06-24 04:06 | Inpatient (IN) | payer OTHER ==
[~2021-06-24] VITALS: Ht 154.9 cm; Wt 52.3 kg
[~2021-06-24 04:06] MED LIST changes: +PRED20 PO
[2021-06-24 04:26] LABS: BASOPHILS ABSOLUTE AUTO 0.08 K/mm3 (0.00-0.23); BASOPHILS PERCENT AUTO 1 % (0-2); EOSINOPHILS ABSOLUTE AUTO 0.14 K/mm3 (0.00-0.68); EOSINOPHILS PERCENT AUTO 1 % (0-6); Hematocrit 31.9 % (33.0-51.0); Hemoglobin 9.5 g/dL (11.5-16.0); IMMATURE GRAN ABSOLUTE AUTO 0.23 K/mm3 (0.00-0.10); IMMATURE GRAN PERCENT AUTO 1 % (0-1); LYMPHOCYTES ABSOLUTE AUTO 3.39 K/mm3 (0.84-5.20); LYMPHOCYTES PERCENT AUTO 20 % (21-46); MONOCYTES ABSOLUTE AUTO 1.35 K/mm3 (0.16-1.47); MONOCYTES PERCENT AUTO 8 % (4-13); Mean Corpuscular HGB Conc 29.8 g/dL (31.5-36.5); Mean Corpuscular Volume 104 fL (80-100); Mean Platelet Volume 12.7 fL (9.1-12.4); NEUTROPHILS PERCENT AUTO 70 % (41-73); NRBC ABSOLUTE 0.04 K/mm3 (0.00-0.02); NRBC Auto 0.2 /100 WBC (0.0-0.2); Platelet Count 183 K/mm3 (150-400); RDW Coefficient Variation 13.5 % (11.7-14.2); Red Blood Cell Count 3.06 M/mm3 (3.80-5.20); White Blood Cell Count 17.29 K/mm3 (4.00-11.30)
[2021-06-24 04:40] LABS: PCO2 Arterial 73.1 mmHg (35-45); PO2 Arterial 58.8 mmHg (80-100); pH Blood Arterial 7.38 (7.35-7.45)
[2021-06-24 04:45] LABS: Source, Urine Catheter
[2021-06-24 04:47] LABS: Bilirubin, Urine Neg (Neg); Blood, Urine 3+ (Neg); Glucose Qualitative, Urine 2+ (Neg); Ketones, Urine Neg (Neg); Leukocyte Esterase, Urine 1+ (Neg); Nitrite, Urine Neg (Neg); Protein, Urine 3+ (Neg); Urobilinogen, Urine NORM (Normal)
[2021-06-24 04:51] LABS: Alanine Aminotransfer (ALT/SGP 48 U/L (12-78); Albumin, Blood 2.9 g/dL (3.4-5.0); Albumin/Globulin Ratio 0.8 (0.8-1.8); Alk Phos 109 U/L (50-136); Anion Gap 6 mmol/L (6-16); Aspartate Aminotrans (AST/SGOT 56 U/L (12-37); Bilirubin, Total 0.3 mg/dL (0.1-1.0); Blood Urea Nitrogen 26 mg/dL (8-24); Bun/Creatinine Ratio 11.2 (12.0-20.0); CO2, Blood 42 mmol/L (21-32); Calcium, Blood 8.5 mg/dL (8.5-10.1); Chloride, Blood 93 mmol/L (98-108); Creatinine, Blood 2.33 mg/dL (0.40-1.00); Ethanol (Alcohol), Blood, Med <3 mg/dL; Globulin, Blood 3.7 g/dL (2.2-4.0); Glomerular Filtration Rate 21 (60-); Glucose, Blood 251 mg/dL (70-99); Potassium, Blood 3.9 mmol/L (3.5-5.5); Sodium, Blood 141 mmol/L (136-145); Total Protein, Blood 6.6 g/dL (6.4-8.2); Troponin I <0.015 ng/mL (0.000-0.040)
[2021-06-24 05:10] LABS: U Amphetamine Screen DETECTED; U Barbituate Screen Not Detected; U Benzodiazapine Screen Not Detected; U Buprenorphine Screen Not Detected; U Cannabinoids Screen Not Detected; U Cocaine Screen Not Detected; U Methadone Screen DETECTED; U Methamphetamine Screen DETECTED; U Opiates Screen Not Detected; U Oxycodone Screen DETECTED; U Phencyclidine Screen Not Detected; U Propoxyphene Screen Not Detected
[2021-06-24 05:17] LABS: Appearance, Urine Clear (Clear); Color, Urine Yellow (P-Yellow)
[2021-06-24 05:18] LABS: Amorphous Light (0-Heavy); Bacteria Few /hpf; Mucus Light (0-Heavy); Red Blood Cells, Urine 0-2 /hpf (0-2); Squamous Epithelial Cells Not Seen /hpf (Few); White Blood Cells, Urine Rare /hpf (0-5)
[2021-06-24 05:40] LABS: SARS-Cov-2 (COVID-19) PCR, MMC NEGATIVE (NEGATIVE)
--- NOTE | 2021-06-24 09:34 | NUR ---
Echocardiogram completed.
[2021-06-24 17:54] LABS: Hematocrit 28.2 % (33.0-51.0); Hemoglobin 8.9 g/dL (11.5-16.0)
[2021-06-25 04:55] LABS: PCO2 Arterial 41.6 mmHg (35-45); pH Blood Arterial 7.56 (7.35-7.45)
[2021-06-25 05:41] LABS: BASOPHILS PERCENT AUTO 0 % (0-2); EOSINOPHILS PERCENT AUTO 0 % (0-6); Hematocrit 26.6 % (33.0-51.0); Hemoglobin 8.2 g/dL (11.5-16.0); IMMATURE GRAN ABSOLUTE AUTO 0.05 K/mm3 (0.00-0.10); IMMATURE GRAN PERCENT AUTO 1 % (0-1); LYMPHOCYTES ABSOLUTE AUTO 0.27 K/mm3 (0.84-5.20); LYMPHOCYTES PERCENT AUTO 4 % (21-46); MONOCYTES ABSOLUTE AUTO 0.37 K/mm3 (0.16-1.47); MONOCYTES PERCENT AUTO 5 % (4-13); Mean Corpuscular HGB 31.1 pg (26.0-34.0); Mean Corpuscular HGB Conc 30.8 g/dL (31.5-36.5); Mean Corpuscular Volume 101 fL (80-100); Mean Platelet Volume 12.9 fL (9.1-12.4); NEUTROPHILS PERCENT AUTO 91 % (41-73); Platelet Count 101 K/mm3 (150-400); RDW Coefficient Variation 13.5 % (11.7-14.2); RDW Standard Deviation 49.5 fL (35.1-46.3); Red Blood Cell Count 2.64 M/mm3 (3.80-5.20); White Blood Cell Count 7.79 K/mm3 (4.00-11.30)
[2021-06-25 06:16] LABS: Albumin, Blood 2.5 g/dL (3.4-5.0); Albumin/Globulin Ratio 0.7 (0.8-1.8); Bilirubin, Total 0.5 mg/dL (0.1-1.0); Bun/Creatinine Ratio 12.8 (12.0-20.0); Calcium, Blood 8.1 mg/dL (8.5-10.1); Creatinine, Blood 3.04 mg/dL (0.40-1.00); Globulin, Blood 3.4 g/dL (2.2-4.0); Potassium, Blood 3.4 mmol/L (3.5-5.5); Total Protein, Blood 5.9 g/dL (6.4-8.2)
--- NOTE | 2021-06-25 19:37 | NUR ---
ADMISSION/SHIFT SUMMARY: PT ARRIVES FROM ER AT APPROX 1600. PT ARRIVES INTUBATED, MILDLY SEDATED ON PROPOFOL INFUSION. PRECEDEX INFUSION INITIATED UPON ARRIVAL TO UNIT WITH IMPROVED SEDATION AND DECREASED AGITATION. RESP EVEN AND UNLABORED, 30%FIO2, PEEP 5. SR ON MONITOR. R FEMORAL CENTRAL LINE IN PLACE, INFUSING WELL. INDWELLING TEMP CARMEN CONTINUES, DRAINING TEA COLORED URINE. RECTAL TUBE IN PLACE WITH MINIMAL OUTPUT. REPORT HAS BEEN GIVEN TO RENNY SINGH TO ASSUME CARE OF PT.
--- NOTE | 2021-06-25 19:42 | NUR ---
TELEMETRY REPORT: ABI Workable, INFORMED THIS PLANTING SUPERVISOR AT 1701 SO QT INTERVAL WAS AT .5 THE HIGH RANGE OF NORMAL. INFORMED NIGHT NURSES, AND WILL CONTINUE TO MONITOR FOR CHANGE.
--- NOTE | 2021-06-25 20:45 | NUR ---
DISCUSSED POC WITH DR. ALONZO. SHE STATES SHE SPOKE WITH THE PATIENT'S AND HE WAS CONCERNED ABOUT THE PATIENT'S METHADONE. SHE ORDERED METHADONE 10MG PO QID. NOTIFIED HER PATIENT'S PEG TUBE HAD LOTS OF CRUSTY LIKE MATERIAL IN TUBING AND TUBING LOOKED DIRTY. SHE ORDERED OK TO USE PEG TUBE.
--- NOTE | 2021-06-25 22:15 | NUR ---
ABDOMEN HAD MOD AMT BROWN CRUSTED MATERIAL AROUND PEG INSERTION SITE. NO REDNESS NOTED. CLEANSED AREA WITH WATER AND SOAP. PEG TUBING IS DIRTY LOOKING WITH MOD AMOUNT OF BROWN THICK MATERIAL IN TUBING. TUBING PLUG HAS AREAS CHIPPED OFF AND IS DIRTY. TUBE FLUSHED WELL WITH 30 MLS WATER.
--- NOTE | 2021-06-25 22:40 | NUR ---
PATIENT'S SPO2 DOWN TO UPPER 80'S, RENNY LANGSTON INCREASED FIO2 TO 45%, SPO2 UP TO 90'S.
--- NOTE | 2021-06-26 00:55 | NUR ---
PATIENT BECAME RESTLESS WHEN BEDBATH WAS GIVEN, GRIMACING. RASS SCORE 2. FENTANYL GIVEN PER EMAR. PATIENT CALMED AND WE WERE ABLE TO CONTINUE WITH BEDBATH. PROPROL CONTINUES AT 65 MCG/KG/MIN AND PRECEDEX CONTINUES AT 0.7 MCG/KG/HR.
[2021-06-26 04:16] LABS: BASOPHILS ABSOLUTE AUTO 0.01 K/mm3 (0.00-0.23); BASOPHILS PERCENT AUTO 0 % (0-2); EOSINOPHILS PERCENT AUTO 0 % (0-6); Hematocrit 25.7 % (33.0-51.0); Hemoglobin 8.3 g/dL (11.5-16.0); IMMATURE GRAN ABSOLUTE AUTO 0.06 K/mm3 (0.00-0.10); IMMATURE GRAN PERCENT AUTO 1 % (0-1); LYMPHOCYTES ABSOLUTE AUTO 0.27 K/mm3 (0.84-5.20); LYMPHOCYTES PERCENT AUTO 4 % (21-46); MONOCYTES PERCENT AUTO 4 % (4-13); Mean Corpuscular HGB 31.8 pg (26.0-34.0); Mean Corpuscular HGB Conc 32.3 g/dL (31.5-36.5); Mean Corpuscular Volume 99 fL (80-100); Mean Platelet Volume 12.7 fL (9.1-12.4); NEUTROPHILS ABSOLUTE AUTO 6.94 K/mm3 (1.96-9.15); NEUTROPHILS PERCENT AUTO 92 % (41-73); Platelet Count 113 K/mm3 (150-400); RDW Coefficient Variation 13.5 % (11.7-14.2); Red Blood Cell Count 2.61 M/mm3 (3.80-5.20); White Blood Cell Count 7.58 K/mm3 (4.00-11.30)
[2021-06-26 04:38] LABS: Bun/Creatinine Ratio 17.5 (12.0-20.0); Calcium, Blood 7.7 mg/dL (8.5-10.1); Creatinine, Blood 3.37 mg/dL (0.40-1.00); Potassium, Blood 3.4 mmol/L (3.5-5.5)
--- NOTE | 2021-06-26 05:19 | NUR ---
ATTEMPTED TO WEAN. JOVANNA JOHN RT, RAYSHAWN COFFEE GROWER, AND THIS RN AT BEDSIDE. PROPOFOL DECREASED FROM 65 MCG/KG/MIN TO 30 MCG/KG/MIN, PATIENT WAS APNEIC. PROPOFOL DECREASED TO 15 MCG/KG/MIN. PATIENT GRIMACED WITH STERNAL RUB. PATIENT STILL APNEIC. FAILED ATTEMPT TO WEAN.
[2021-06-26 05:43] LABS: PCO2 Arterial 36.1 mmHg (35-45); PO2 Arterial 106 mmHg (80-100); pH Blood Arterial 7.54 (7.35-7.45)
--- NOTE | 2021-06-26 06:42 | NUR ---
CALLED DR. JOE. NOTIFIED HIM PATIENT'S POTASSIUM WAS 3.4, CREATININE 3.37. DR. JOE STATED NOT TO REPLACE AT THIS TIME. NOTIFIED HIM PATIENT'S SYSTOLIC BLOOD PRESSURE HAS BEEN IN THE 160'S OVER THE LAST TWO HOURS, PATIENT HAS NORMAL SALINE RUNNING AT [address] JOE STATED TO LET THE PRIMARY CARE TEAM ADDRESS IT, STATES SBP IN THE 160'S "IS NOT THAT BAD." WILL NOTIFY DAYSHIFT RN.
--- NOTE | 2021-06-26 07:16 | NUR ---
SHIFT SUMMARY: PATIENT SEDATED AND INTUBATED. RASS SCORE -3 TO -4, UNLESS SHE IS BEING REPOSITIONED OR TOUCHED SHE CAN BECOME UNCOMFORTABLE AN RASS SCORE INCREASES TO 2 UNTIL FENTANYL IS GIVEN. FENTANYL GIVEN X2. PROPOFOL WAS AT 65 AND PRECEDEX WAS AT 0.7 FOR MOST OF THE NIGHT. PROPOFOL IS NOW AT 55. PATIENT FAILED WEANING TRIAL. VENT SETTINGS RATE 18, VOLUME 350, FIO2 45%, PEEP 5. SINUS RHYTHM IN THE 60'S. SBP IN THE 160'S, MD AWARE. PEG TUBE IN PLACE. OG TO LOW INTERMITTENT SUCTION WITH 250 MLS GREEN FLUID OUTPUT. TURNED Q2H. PLAN IS FOR POSSIBLE WEANING TRIAL TODAY, START TUBE FEEDING VIA PEG TUBE. REPORT GIVEN TO ONCOMING RN.
--- NOTE | 2021-06-26 09:05 | NUR ---
SEDATION VACATION: AT APPROX 0840, THIS RN AND RECRUITING CONSULTANT ERIN Palmer AT BEDSIDE, PROPOFOL PLACED ON STANDBY. PT WAS ABLE TO OPEN HER EYES, INITIALLY WITH AN UPWARD GAZE, THEN EVENTUALLY TRACKED MOVEMENT. PUPILS EQUAL AT 3MM, REACTIVE TO LIGHT. PT MOVED EXTREMITIES. PT WAS NOT ABLE TO FOLLOW COMMANDS, BECAME AGITATED, TENSE, SHAKING HER HEAD. PT MEDICATED WITH PRN ATIVAN AND PROPOFOL INFUSION RESTARTED. AT THIS TIME PT RESTING QUIETLY IN BED. WILL CONTINUE TO MONITOR AND TREAT ACCORDINGLY.
--- NOTE | 2021-06-26 18:04 | NUR ---
SHIFT SUMMARY: PT CONTINUES SEDATED AND INTUBATED. ETT TUBE BACKED OUT TO 22 CM AT THE GUMLINE. PRECEDEX AT 0.7 MCG/KG/HR AND PROPOFOL AT 55 MCG/KG/HR. SEDATION VACATION PROVIDED THIS AM, SEE PREVIOUS NOTE. CURRENT VENT SETTINGS: RATE 18, VOLUME 350, FIO2 30%, PEEP 5. PT TOLERATING WELL, WILL GRIMACE WHEN STIMULATED SUCH WITH ORAL CARE OR REPOSITIONING, BUT SETTLES ONCE STIMULATION REMOVED. SR ON MONITOR, SBP 140s-160s. PEG TUBE USED FOR MEDICATIONS WITHOUT DIFFICULTY. OG TUBE CONTINUES, SET TO LOW INTERMITTENT SUCTION. BILATERAL SW RESTRAINTS CONTINUE FOR SAFETY AND PROTECTION OF LINES. REPOSITIONING AND ORAL CARE PROVIDED PER PROTOCOL. WILL CONTINUE TO MONITOR AND TREAT ACCORDINGLY UNTIL CHANGE OF SHIFT.
--- NOTE | 2021-06-26 20:20 | NUR ---
CARE ASSUMPTION PT ICU STATUS, SEDATED & INTUBATED W/ VENT: TV 350, PEEP 5, FIO2 30%, RR 18. PT RESPONDS TO PAINFUL STIMULI, GRIMACING W/ SUCTIONING OR REPOSITIONING. BP ELEVATED. MONITOR SHOWS SR, HR 70's. OT TO LIS W/ LIQUID GREEN/BROWN OUTPUT. TEMP CARMEN CATH DRAINING GREEN/YELLOW URINE. RECTAL TUBE W/ SMALL AMOUNT LIQUID BROWN OUTPUT IN TUBING. CENTRAL LINE TO R FEM INFUSING PROPOFOL @ 55 MCG/KG/MIN & PRECEDEX @ O.7 MCG/KG/HR. FISTULA NOTED TO ROSI. BILAT SWR IN PLACE. BILAT HANDS W/ SWELLING, ELEVATED ON PILLOWS. WILL CONTINUE TO MONITOR & PROVIDE CARE.
[2021-06-27 03:37] LABS: BASOPHILS PERCENT AUTO 0 % (0-2); EOSINOPHILS PERCENT AUTO 0 % (0-6); Hematocrit 27.2 % (33.0-51.0); IMMATURE GRAN ABSOLUTE AUTO 0.08 K/mm3 (0.00-0.10); IMMATURE GRAN PERCENT AUTO 1 % (0-1); LYMPHOCYTES ABSOLUTE AUTO 0.24 K/mm3 (0.84-5.20); LYMPHOCYTES PERCENT AUTO 3 % (21-46); MONOCYTES ABSOLUTE AUTO 0.28 K/mm3 (0.16-1.47); MONOCYTES PERCENT AUTO 4 % (4-13); Mean Corpuscular HGB 32.4 pg (26.0-34.0); Mean Corpuscular HGB Conc 33.1 g/dL (31.5-36.5); Mean Corpuscular Volume 98 fL (80-100); Mean Platelet Volume 12.4 fL (9.1-12.4); NEUTROPHILS ABSOLUTE AUTO 7.25 K/mm3 (1.96-9.15); NEUTROPHILS PERCENT AUTO 92 % (41-73); NRBC ABSOLUTE 0.02 K/mm3 (0.00-0.02); NRBC Auto 0.3 /100 WBC (0.0-0.2); Platelet Count 129 K/mm3 (150-400); RDW Coefficient Variation 13.6 % (11.7-14.2); RDW Standard Deviation 49.1 fL (35.1-46.3); Red Blood Cell Count 2.78 M/mm3 (3.80-5.20); White Blood Cell Count 7.85 K/mm3 (4.00-11.30)
[2021-06-27 03:52] LABS: Bun/Creatinine Ratio 21.8 (12.0-20.0); Creatinine, Blood 3.49 mg/dL (0.40-1.00)
--- NOTE | 2021-06-27 04:46 | NUR ---
WEAN ATTEMPT PRECEDEX GTT INFUSING @ 0.7 MCG/KG/HR, UNCHANGED FOR WEAN. PROPOFOL TITRATED FROM 55 MCG/KG/MIN TO 45 W/ PT THEN OPENING EYES, SHAKING HEAD & COUGHING. RT TO FOR WEAN TRIAL W/ PT PROPOFOL THEN TITRATED TO 35 MCG/KG/MIN. RT ADJUSTING VENT (SEE RT DOCUMENTING). PT NOT CONSISTENTLY FOLLOWING SIMPLE COMMANDS FOR SQUEEZING HANDS OR TURNING HEAD OR TRACKING OBJECT W/ EYES. PT ALSO NOT ANSWERING Y/N Q's FOR OWN NAME/ APPROPRIATELY. PT THEN SQUEEZING HANDS TIGHTLY & GRIMACING, SHAKING HEAD & BECOMING RESTLESS & AGITATED. PT RESEDATED W/ PROPOFOL @ 55 MCG/KG/MIN. RT PLACED PT BACK ON PREVIOUS VENT SETTINGS.
--- NOTE | 2021-06-27 06:13 | NUR ---
SHIFT SUMMARY PT REMAINS ICU STATUS, SEDATED & INTUBATED W/ VENT: TV 350, PEEP 5, FIO2 30%, RR 18. PT FAILED WEAN TRIAL THIS AM W/ RT, SEE PREVIOUS NOTE. PROPOFOL INCREASD TO 60 MCG/KG/MIN THIS SHIFT FROM 55. PRECEDEX GTT INFUSING @ 0.7 MCG/KG/HR. BP ELEVATED. MONITOR SHOWS SR, HR 60's-70's. OT TO LIS W/ APPROX 100 MLS LIQUID GREEN/BROWN OUTPUT. TEMP CARMEN CATH DRAINING GREEN/YELLOW URINE. RECTAL TUBE W/ SMALL AMOUNT LIQUID BROWN OUTPUT. BILAT SWR IN PLACE. Q2H REPOSITIONING BY 2 STAFF MEMBERS T/O SHIFT. WILL CONTINUE TO MONITOR & PROVIDE CARE UNTIL REPORT OFF TO DAY SHIFT RN.
--- NOTE | 2021-06-27 09:09 | NUR ---
[place] of Care Pt is sedated and oriented to none. Dr Lee has seen her this morning and would like her Fio2 to go no lower than 30% which is what her vent is set at now with a peep of 5.0. Her o2 sat is 95%. BP is elevated but meds have been given as ordered. She is in normal sinus rhythm. She has a rectal tube in place with no output thus far. Her holliday is paten with clear yellow output. Fitula to CELSA is + for a bruit/thrill. She is scheduled for dialysis this morning.
--- NOTE | 2021-06-27 15:50 | NUR ---
Shift Summary Pt has been sedated throughout the day. Dr Lee plans to attempt to extubate her today. When we decreased her propofol she opeded her eyes but was not able to follow commands. Fentanyl was given as an adjunct and was effective. This afternoon Dr Lee stopped the propofol and then made some adjustments to her vent, she is now on spontaneous. Her sats are in the 90's but she is hypertensive and Dr Lee is aware. She is following commands now with her eyes open. She has a weak dopeman. Precedex is @ 1.2 and propofol is back on @ 15. Nutrition consult was called in for bolus feedings per her established PEG but we havnt started yet due to the possible extubation. Her central line is patent and so is her holliday. Oral care has been done throughout the day along with re-positioning. Pt has her call light in reach.
--- NOTE | 2021-06-27 19:20 | NUR ---
ASSESSMENT/ASSUMED CARE PT AWAKE TRING TO REACH FOR ET TUBE. REPOSITIONED. BILAT SOFT WRIST RESTRAINTS ON. PT FOLLOWING SOME SIMPLE INSTRUCTIONS. LUNGS DECREASED THROUGHOUT. PT ON SPONT WITH A PEEP OF 5 FIO2 30%. SUCTIONED LARGE AMTS THIN CLEAR FLUID FROM ET TUBE. HEART RATE REGULAR, BP STABLE. BT+ HYPOACTIVE. OG TO LIS WITH GREEN/BROWN LIQUID DRAINING. PEG TUBE TO LEFT UPPER QUAD CLAMPED. CARMEN CATH PATENT DRAINING YELLOW URINE. RECTAL TUBE REPOSITIONED AND LINEN CHANGED. CARMEN CATH AND CEZAR CARE DONE. CENTRAL LINE TO RIGHT GROIN SITE CLEAR. PROPOFOL AT 15 MCQ/KG/MIN, PRECEDEX AT 1.2 MCQ/KG/MIN AND NS AT 10 ML/HR. IV TO LEFT CHEST WALL 20G SALINE LOCKED, FLUSHED WITHOUT DIFFICULTY. RT TO BED SIDE TO CHANGE PT BACK TO AC ON VENT. FIO2 INCREASED TO 60%.
[2021-06-28 04:32] LABS: BASOPHILS ABSOLUTE AUTO 0.01 K/mm3 (0.00-0.23); BASOPHILS PERCENT AUTO 0 % (0-2); EOSINOPHILS PERCENT AUTO 0 % (0-6); Hematocrit 26.7 % (33.0-51.0); Hemoglobin 8.6 g/dL (11.5-16.0); IMMATURE GRAN ABSOLUTE AUTO 0.07 K/mm3 (0.00-0.10); IMMATURE GRAN PERCENT AUTO 1 % (0-1); LYMPHOCYTES ABSOLUTE AUTO 0.25 K/mm3 (0.84-5.20); LYMPHOCYTES PERCENT AUTO 4 % (21-46); MONOCYTES ABSOLUTE AUTO 0.33 K/mm3 (0.16-1.47); MONOCYTES PERCENT AUTO 6 % (4-13); Mean Corpuscular HGB 31.3 pg (26.0-34.0); Mean Corpuscular HGB Conc 32.2 g/dL (31.5-36.5); Mean Corpuscular Volume 97 fL (80-100); Mean Platelet Volume 12.1 fL (9.1-12.4); NEUTROPHILS ABSOLUTE AUTO 5.12 K/mm3 (1.96-9.15); NEUTROPHILS PERCENT AUTO 89 % (41-73); NRBC ABSOLUTE 0.03 K/mm3 (0.00-0.02); NRBC Auto 0.5 /100 WBC (0.0-0.2); Platelet Count 123 K/mm3 (150-400); RDW Coefficient Variation 13.6 % (11.7-14.2); RDW Standard Deviation 48.4 fL (35.1-46.3); Red Blood Cell Count 2.75 M/mm3 (3.80-5.20); White Blood Cell Count 5.78 K/mm3 (4.00-11.30)
[2021-06-28 05:01] LABS: Bun/Creatinine Ratio 20.1 (12.0-20.0); Calcium, Blood 7.3 mg/dL (8.5-10.1); Creatinine, Blood 2.39 mg/dL (0.40-1.00); Magnesium, Blood 1.9 mg/dL (1.6-2.4); Phosphorus, Blood 3.7 mg/dL (2.5-4.9); Potassium, Blood 3.2 mmol/L (3.5-5.5)
--- NOTE | 2021-06-28 06:30 | NUR ---
SHIFT SUMMARY PT CONT INTUBATED AND [facility]. PLACED ON AC 18 TV 350 PEEP 5 FIO2 45% DURING THE NIGHT. MED WITH ATIVAN AND FENTANYL PRN FOR AGITATION. TURNED Q2HRS. OG AT LIS WITH GREEN/BROWN LIQUID DRAINING. PEG TUBE CLAMPED. FISTULA TO LEFT UPPER ARM WITH THRILL AND BRUIE. CENTRAL LINE TO RIGHT GROIN DRSG INTACT WITH PROPOFOL AT 15 MCQ/KG/MIN, PRECEDEX AT 1.2 MCQ/KG/MIN AND NS AT 10 ML/HR. BILAT SOFT WRIST RESTRAINTS ON. VSS. REPORT TO ON COMING NURSE
--- NOTE | 2021-06-28 08:47 | NUR ---
ASSUMED CARE REPORT FROM CLINT LAWSON AT 0700. PT INTUBATED AND SEDATED. VENT SETTINGS AC 18/350/5/45%. LUNGS CLEAR. SMALL AMOUNT OF THIN CLEAR SECRETIONS. COUGH/GAG/SWALLOW REFLEX. FOLLOWS SIMPLE DIRECTIONS. SHAKES HEAD TO YES/NO QUESTIONS. ABD ROUND, SOFT, BT X 4. PEG TUBE IN PLACE, FLUSHES WELL. OGT CLAMPED. CARMEN PATENT, DRAINING TO GRAVITY. RECTAL TUBE DRAINING TO GRAVITY. CVC TO RIGHT GROIN. BP STABLE. WILL CONTINUE TO MONITOR.
--- NOTE | 2021-06-28 10:06 | NUR ---
ASSUMED CARE REPORT FROM CLINT LAWSON AT 0700. PT RESTING IN BED, ANXIOUS. REFUSING ANXIETY MEDICATIONS. TRANSVENOUS PACER IN PLACE. DRESSING C/D/I. MARKING AT 90 CM. VVI RATE 50, V 9.5. PACER SPIKES PRESENT, NO QRS AFTER SPIKES, RATE 80'S. PT DENIES SYMPTOMS. REVIEWED CHEST XRAY FOR PLACEMENT. DR FLORES EVALUATED PT, REDUCED RATE TO 40. ANTICIPATE D/C ING THIS AFTERNOON. LUNGS CLEAR. O2 AT 5L VIA NC. BP STABLE. WILL CONTINUE TO MONITOR.
--- NOTE | 2021-06-28 17:47 | NUR ---
SHIFT SUMMARY PT REMAINS INTUBATED AND SEDATED. ON SPONT SINCE 0900, GOAL TO REMAIN ON SPONT THROUGH NOC. SPONT 14/5/35%. LUNGS CLEAR. SMALL THIN CLEAR SECRETIONS THROUGH ETT. PT FOLLOW COMMANDS. NODS HEAD TO YES/NO QUESTIONS. TUBE FEEDS STARTED THIS SHIFT, STARTED AT 20 ML/HR TO ASSESS GI TOLERANCE. INFUSING VIA PEG, OGT CLAMPED. BT X 4. CARMEN PATENT, DRAINING TO GRAVITY. RECTAL TUBE IN PLACE, SCANT OUT THIS SHIFT. BP STABLE. WILL CONTINUE TO MONITOR UNTIL REPORT TO ONCOMING NURSE.
--- NOTE | 2021-06-28 19:15 | NUR ---
ASSESSMENT/ASSUMED CARE PT INTUBATED AND ON [facility] VENT. PT LIGHTLY SEDATED WITH PROPOFOL AND PRECEDEX. VENT SETTINGS SPONT 14/5 FIO2 35%. SUCTIONED MODERATED AMT THIN CLEAR FLUID VIA ET TUBE. PT NODDING YES/NO QUESTIONS APPROP. NO RESTRAINTS ON. PT FOLLOWING INSTRUCTIONS. HEART RATE REGULAR. BP STABLE. FISTULA TO LEFT UPPER ARM WITH GOOD THRILL/BRUIE. BT+ OG CLAMPED. PEG TUBE WITH TUBE FEED NEPRO AT 20 ML/HR, WATER 30 ML Q4HR. RESIDUAL 5 ML REFED. PEG SITE CLEAR. IV 20G TO LEFT CHEST CLAMPED, SITE CLEAR. CENTRAL LINE TO RIGHT GROIN DRSG INTACT. PROPOFOL AT 13 MCQ/KG/MIN, PRECEDEX AT 1.4 MCQ/KG/MN AND NS AT 10 ML/HR. PT REPOSITIONED AND ORAL CARE DONE. RESP RATE 16-20. PT BACK TO SLEEP QUICKLY AFTER CARE.
[2021-06-29 04:16] LABS: BASOPHILS PERCENT AUTO 0 % (0-2); EOSINOPHILS ABSOLUTE AUTO 0.01 K/mm3 (0.00-0.68); EOSINOPHILS PERCENT AUTO 0 % (0-6); Hematocrit 26.3 % (33.0-51.0); Hemoglobin 8.2 g/dL (11.5-16.0); IMMATURE GRAN ABSOLUTE AUTO 0.11 K/mm3 (0.00-0.10); IMMATURE GRAN PERCENT AUTO 2 % (0-1); LYMPHOCYTES ABSOLUTE AUTO 0.25 K/mm3 (0.84-5.20); LYMPHOCYTES PERCENT AUTO 5 % (21-46); MONOCYTES ABSOLUTE AUTO 0.32 K/mm3 (0.16-1.47); MONOCYTES PERCENT AUTO 7 % (4-13); Mean Corpuscular HGB 30.7 pg (26.0-34.0); Mean Corpuscular HGB Conc 31.2 g/dL (31.5-36.5); Mean Corpuscular Volume 99 fL (80-100); Mean Platelet Volume 12.4 fL (9.1-12.4); NEUTROPHILS ABSOLUTE AUTO 3.98 K/mm3 (1.96-9.15); NEUTROPHILS PERCENT AUTO 85 % (41-73); Platelet Count 110 K/mm3 (150-400); RDW Coefficient Variation 13.6 % (11.7-14.2); RDW Standard Deviation 48.9 fL (35.1-46.3); Red Blood Cell Count 2.67 M/mm3 (3.80-5.20); White Blood Cell Count 4.67 K/mm3 (4.00-11.30)
[2021-06-29 04:37] LABS: Bun/Creatinine Ratio 21.5 (12.0-20.0); Calcium, Blood 7.5 mg/dL (8.5-10.1); Creatinine, Blood 2.89 mg/dL (0.40-1.00); Phosphorus, Blood 4.5 mg/dL (2.5-4.9); Potassium, Blood 3.9 mmol/L (3.5-5.5)
--- NOTE | 2021-06-29 06:37 | NUR ---
SHIFT SUMMARY PT CONT INTUB[facility] AND [facility]. PT HAS REMAINED ON SPONT 14/5 FIO2 35% ALL NIGHT. SUCTIONED MODERATE AMT THIN CLEAR LIQUID VIA ET TUBE. PT LIGHTLY SEDATED WITH PROPOFOL AT 13 MCQ/KG/MIN, PRECEDEX 1.4 MCQ/KG/MIN AND NS AT 10 ML/HR. PT HAS RECEIVED ONE DOSE OF ATIVAN 1 MG AND SEVERAL DOSES OF FENTANYL FOR PAIN. PT ANSWERING QUESTIONS BUT NODING HEAD YES/NO. ABLE TO MAKE NEEDS KNOWN. VSS. TUBE FEED INCREASED DURING THE NIGHT FROM 20 ML/HR TO 40 ML/HR. MIN RESIDUAL NOTED. CENTRAL LINE TO RIGHT GROIN STABLE. FISTULA TO LEFT UPPER ARM GOOD, POSSIBLE DIALYSIS TODAY. POSSIBLE EXTUBATION TODAY. REPORT TO ON COMING NURSE
--- NOTE | 2021-06-29 08:10 | NUR ---
INITIAL ASSESSMENT PATIENT INTUBATED AND ON SEDATION. PATIENT FOLLOWING SIMPLE COMMANDS AND ANSWERING YES AND NO QUESTIONS WITH NODDING AND SHAKING OF HEAD. PATIENT ANXIOUS AT TIMES. PATIENT AFEBRILE. PATIENT ON SPONTANEOUS PRESSURE SUPPORT 14/5 AND 35% FIO2. RLL COARSE AND WHEEZY; ALL OTHER LUNG LOBES CLEAR TO AUSCULTATION. RR TEENS TO 20S. MODERATE AMOUNT OF THIN, CLEAR SECRETIONS NOTED FROM ETT. PATIENT IN SR, HR 60S TO 70S. SBP 130S TO 140S. LEFT ARM AND HAND 1+ EDEMA. OG CLAMPED TF INFUSING THROUGH PEG TUBE. RECTAL TUBE IN PLACE DRAINING BROWN, LIQUID STOOL. CARMEN IN PLACE DRAINING YELLOW/ GREEN URINE. FISTULA TO L ARM. SCATTERED BRUISES NOTED. LARGE BRUISE TO L HIP. PROPOFOL AT 13 MCG/ KG/ MINUTE, PRECEDEX AT 1.4 MCG/ KG/ HOUR, NS TKO. BED LOW, CALL LIGHT IN REACH. WILL CONTINUE TO MONITOR PATIENT FREQUENTLY THROUGHOUT SHIFT.
--- NOTE | 2021-06-29 11:27 | NUR ---
TF OFF PER DR. CANDELARIO IN HOPES OF EXTUBATION SOON.
--- NOTE | 2021-06-29 12:00 | NUR ---
PATIENT AFEBRILE. PATIENT REMAINS ON SPONTANEOUS PS. PROP ON SB. PRECEDEX REMAINS INFUSING. HR IN THE 70S. SBP IN THE 130S. TF ON HOLD FOR PENDING EXTUBATION. NO OTHER ACUTE CHANGES TO NOTE ON AT THIS TIME. WILL CONTINUE TO MONITOR.
--- NOTE | 2021-06-29 12:56 | NUR ---
PATIENT EXTUBATED AROUND 1240. PATIENT SATTING ABOVE 90 ON 3 L NC. WILL CONTINUE TO MONITOR.
--- NOTE | 2021-06-29 16:00 | NUR ---
PATIENT AFEBRILE. PATIENT SATTING IN THE 90S ON 3 L NC. PATIENT ALERT AND OREINTED, PLEASANT AND COOPERATIVE. PATIENT WEAK BUT ABLE TO MOVE ALL EXTREMITIES. HR IN THE 1-TEENS. SBP LOW 100S TO 170S. OG REMOVED WHEN PATIENT EXTUBATED. BED LOW, CALL LIGHT IN REACH. WILL CONTINUE TO MONITOR.
--- NOTE | 2021-06-29 19:00 | NUR ---
SHIFT SUMMARY PATIENT EXTUBATED TODAY AROUND 1240. PATIENT REMAINED ALERT AND ORIENTED, AFEBRILE. PATIENT ANXIOUS AT TIMES. PATIENT GIVEN PRN FENTANYL FOR COMPLAINTS OF PAIN. PATIENT HAS BEEN SATTING 90% AND GREATER ON 3 L NC UNTIL SHORT TIME AGO WHEN PATIENT STARTED TO HAVE INCREASED WOB AND STATING THAT SHE WAS HAVING PROBLEMS BREATHING. PATIENT INCREASED TO 5 L NC AND THEN ON TO BIPAP. RT IN ROOM TO GIVE RACEMIC EPI. PRIMARY NURSE HAS BEEN IN COMMUNICATION WITH DR. CANDELARIO REGARDING INCREASED WOB AND O2 NEEDS. PATIENT HAS BEEN SR TO ST, HR 60S TO 1-TEENS. SBP 130S TO 200. OG REMOVED WHEN PATIENT EXTUBATED. NURSE TRIED TO GIVE PATIENT PRN TYLENOL AND SCHEDULED METHADONE BUT PEG TUBE CLOGGED. ORDERS PLACED UNDER NURSE NOTIFY PER DR. CANDELARIO. RECTAL TUBE REMOVED THIS SHIFT PER PATIENT REQUEST. CARMEN REMAINED DRAINING YELLOW/ GREEN URINE. NS REMAINS TKO. PATIENT HAD DIALYSIS TODAY. REPORT HAS BEEN GIVEN TO ASSUMING INSPECTOR PACKER GLASS CONTAINER NURSE.
[2021-06-30 04:56] LABS: BASOPHILS ABSOLUTE AUTO 0.01 K/mm3 (0.00-0.23); BASOPHILS PERCENT AUTO 0 % (0-2); EOSINOPHILS ABSOLUTE AUTO 0.01 K/mm3 (0.00-0.68); EOSINOPHILS PERCENT AUTO 0 % (0-6); Hematocrit 24.3 % (33.0-51.0); Hemoglobin 7.5 g/dL (11.5-16.0); IMMATURE GRAN ABSOLUTE AUTO 0.19 K/mm3 (0.00-0.10); IMMATURE GRAN PERCENT AUTO 3 % (0-1); LYMPHOCYTES ABSOLUTE AUTO 0.23 K/mm3 (0.84-5.20); LYMPHOCYTES PERCENT AUTO 4 % (21-46); MONOCYTES ABSOLUTE AUTO 0.35 K/mm3 (0.16-1.47); MONOCYTES PERCENT AUTO 6 % (4-13); Mean Corpuscular HGB 31.4 pg (26.0-34.0); Mean Corpuscular HGB Conc 30.9 g/dL (31.5-36.5); Mean Corpuscular Volume 102 fL (80-100); Mean Platelet Volume 12.7 fL (9.1-12.4); NEUTROPHILS ABSOLUTE AUTO 5.52 K/mm3 (1.96-9.15); NEUTROPHILS PERCENT AUTO 88 % (41-73); NRBC ABSOLUTE 0.02 K/mm3 (0.00-0.02); NRBC Auto 0.3 /100 WBC (0.0-0.2); Platelet Count 103 K/mm3 (150-400); RDW Coefficient Variation 13.8 % (11.7-14.2); RDW Standard Deviation 50.8 fL (35.1-46.3); Red Blood Cell Count 2.39 M/mm3 (3.80-5.20); White Blood Cell Count 6.31 K/mm3 (4.00-11.30)
[2021-06-30 05:14] LABS: Bun/Creatinine Ratio 16.1 (12.0-20.0); Calcium, Blood 7.3 mg/dL (8.5-10.1); Creatinine, Blood 2.11 mg/dL (0.40-1.00); Phosphorus, Blood 3.5 mg/dL (2.5-4.9); Potassium, Blood 3.7 mmol/L (3.5-5.5)
--- NOTE | 2021-06-30 06:24 | NUR ---
SHIFT SUMMARY PATIENT IS A RESTLESS LADY WHO IS ORIENTED X2-3 AND NOT COMLPLIANT WITH CARE AT START OF SHIFT. WOB IN THE 40'S. HAD TO PUT PATIENT ON BIPAP WITH 95% O2 AND PATIENT DID NOT LIKE THIS AT ALL. THRASHING IN BED, CONSTANTLY MESSING WITH MASK SO RESTRAINTS AND PRECEDEX DRIP RESTARTED PER DR. CANDELARIO ORDER. FOLLOWS SOME COMMANDS AND PÉREZ. COMPLAINS OF SEVER BACK PAIN AND PEG TUBE WAS CLOGGED SO UNABLE TO GIVE SCHEDULED METHADONE. FENTANYL Q1 PRN HELPING KEEP AT TOLERABLE LEVEL. ATIVAN Q2H PRN HELPING WITH ANXIOUSNESS BUT NEEDS ALOT OF ENCOURAGEMENT ALSO. WAS ABLE TO WEAN BIPAP THROUGHOUT NIGHT AND WOB IMPROVED GREATLY. ABLE TO WEAN DOWN TO NOW 4L NC AT THIS TIME, WHICH IS PATIENT BASELINE. RR IN THE 20'S AND RESTING COMFORTABLY. WITH MASK OFF, PRECEDEX BEING TITRATED DOWN AND RESTRAINTS OFF. VSS. SR ON THE MONITOR IN THE 80'S. ATTEMPTED TO UNCLOG PEG TUBE WITH COKE AND THE ORDERS DR. CANDELARIO SUGGESTED, BUT NO LUCK WITH THESE. GI CONSULT PUT IN TO LOOK AT THIS. CARMEN PATENT DRAINING TO GRAVITY. Q2H ORAL CARE AND TURNS. NO ACUTE CONCERNS AT THIS TIME. WILL CONTINUE TO MONITOR UNTIL REPORT GIVEN TO DAYSHIFT RN.
--- NOTE | 2021-06-30 14:28 | NUR ---
PT ALERT AND ORIENTED X3-4. VOICE SOFT AND HARD TO UNDERSTAND AT TIMES. PERRLA. DENIES NUMBNESS/TINGLING. ABLE TO ANSWER ALL ORIENTING QUESTIONS. WEAK BILATERAL LOAN INSPECTOR. COMPLAINS OF PAIN ALL OVER. TELE SHOWING SINUS TACH WITH HR 100-110'S. VITAL SIGNS STABLE. BP ELEVATED AT ONE POINT AND HYDRALAZINE GIVEN WITH GOOD RESULT. PPP. 1+ EDEMA NOTED IN BILATERAL HANDS. DENIES CHEST PAIN/PRESSURE. UPON START OF SHIFT PATIENT ON 4L NASAL CANNULA SATING LOW-MID 90'S. RR 18-28. ABLE TO HEAR AIR MOVEMENT THROUGH LUNGS BUT SOUNDING DIMINISHED. NO WHEEZING. PATIENT HAD EPISODE OF ANXIETY AND TITRATED NASAL CANNULA UP TO 8L SATING MID 90'S. PRN ATIVAN GIVEN AND ABLE TO TITRATE DOWN TO 6L NC. BOWEL TONES PRESENT. ATTENDS IN PLACE. CARMEN CATH DRAINING CLEAR/DOMITILA COLORED URINE TO GRAVITY. SKIN OVERALL PALE AND FRAGILE. BRUISING AND SCARING NOTED THROUGHOUT. LARGE BRUISE OVER OUTSIDE OF LEFT HIP. Q2 TURNING AND NEEDED. PEG TUBE CLOGGED AND NOT PATENT. DR SINCLAIR IN TO CONSULT THIS AFTERNOON. PLAN TO REPLACE PEG TUBE. AT THIS TIME PATIENT NPO. USING GREEN SWABS TO KEEP MOUTH MOIST. CALL LIGHT IN REACH. SPOKE WITH ON PHONE FOR UPDATE. PRECEDEX DRIP INFUSING. DIALYSIS FISTULA TO ROSI. WILL CONTINUE TO MONITOR.
--- NOTE | 2021-06-30 19:29 | NUR ---
SHIFT SUMMARY: PT REMAINS ALERT AND ORIENTED. NO CHANGES IN NEURO. TELE REMAINS SINUS TACH WITH HR 100-105. DENIES CHEST PAIN/PRESSURE. COMPLAINS OF PAIN ALL OVER. PRN MEDS GIVEN. DR. SINCLAIR IN TO PLACE PEG TUBE. XRAY-IN AT THIS TIME TO CHECK PEG TUBE PLACEMENT. PLAN TO REMOVE CARMEN CATH PER DR. CLINE. NASAL CANNULA REMAINS AT 6L, SATING MID 90'S. VITAL SIGNS STABLE. ANXIOUS AT TIMES. PRN ATIVAN GIVEN. RIGHT FEMORAL CENTRAL LINE IN PLACE, PRECEDEX INFUSING. ROSI FISTULA WNL. Q2 TURNING AND Q4 ORAL CARE. CALL LIGHT IN REACH. REPORTED OFF TO ONCOMING RN.
[2021-07-01 04:15] LABS: BASOPHILS ABSOLUTE AUTO 0.02 K/mm3 (0.00-0.23); BASOPHILS PERCENT AUTO 0 % (0-2); EOSINOPHILS ABSOLUTE AUTO 0.03 K/mm3 (0.00-0.68); EOSINOPHILS PERCENT AUTO 0 % (0-6); Hematocrit 27.3 % (33.0-51.0); Hemoglobin 8.2 g/dL (11.5-16.0); IMMATURE GRAN PERCENT AUTO 2 % (0-1); LYMPHOCYTES ABSOLUTE AUTO 0.12 K/mm3 (0.84-5.20); LYMPHOCYTES PERCENT AUTO 1 % (21-46); MONOCYTES ABSOLUTE AUTO 0.42 K/mm3 (0.16-1.47); MONOCYTES PERCENT AUTO 5 % (4-13); Mean Corpuscular HGB 30.8 pg (26.0-34.0); Mean Corpuscular Volume 103 fL (80-100); Mean Platelet Volume 12.5 fL (9.1-12.4); NEUTROPHILS ABSOLUTE AUTO 7.93 K/mm3 (1.96-9.15); NEUTROPHILS PERCENT AUTO 91 % (41-73); NRBC ABSOLUTE 0.02 K/mm3 (0.00-0.02); NRBC Auto 0.2 /100 WBC (0.0-0.2); Platelet Count 103 K/mm3 (150-400); RDW Coefficient Variation 14.2 % (11.7-14.2); RDW Standard Deviation 53.1 fL (35.1-46.3); Red Blood Cell Count 2.66 M/mm3 (3.80-5.20); White Blood Cell Count 8.72 K/mm3 (4.00-11.30)
[2021-07-01 04:30] LABS: Albumin, Blood 2.6 g/dL (3.4-5.0); Anion Gap 5 mmol/L (6-16); Blood Urea Nitrogen 40 mg/dL (8-24); Bun/Creatinine Ratio 15.1 (12.0-20.0); CO2, Blood 30 mmol/L (21-32); Calcium, Blood 8.1 mg/dL (8.5-10.1); Chloride, Blood 109 mmol/L (98-108); Creatinine, Blood 2.65 mg/dL (0.40-1.00); Glomerular Filtration Rate 18 (60-); Glucose, Blood 135 mg/dL (70-99); Phosphorus, Blood 3.3 mg/dL (2.5-4.9); Potassium, Blood 3.4 mmol/L (3.5-5.5); Sodium, Blood 144 mmol/L (136-145)
--- NOTE | 2021-07-01 05:54 | NUR ---
Shift Summary Pt continues to be A&O x4 with bouts of agitation and anxiety. During an episode of agitation SpO2 fell to 86% and this RN was unable to gymnastics coach the pt back into a lower respiratory rate, a NRB was placed at 15L to assist with recovering SpO2. Once SpO2 had reached 95% the NC was replaced at 6L and the pt slowly desaturated, BiPAP was then put in place at 12/9 60% FiO2. Herrera catheter was D/C'd. Bolus feeding via PEG tube x 1 was initiated, pt tolerated well. Pt was fixated on receiving oral fluids throughout the night, oral care was provided PRN per pt request. SR/ST 87-124. No other acute changes noted.
--- NOTE | 2021-07-01 09:23 | NUR ---
PT ALERT AND ORIENTED X4 THIS AM. VOICE SOFT AND HARD TO UNDERSTAND. MOUTH WORDS. BILATERAL FITNESS CLUB MANAGER STRENGTH. WEAK OVERALL. PERRLA. UPON SHIFT START PATIENT ON BIPAP SETTINGS 09/27 AND 30% FIO2 SATING LOW 90'S. SWITCHED OVER TO NASAL CANNULA AT 5L SATING MID 90'S. LUNGS SOUNDING CLEAR. NO SIGNS OF WHEEZING OR STRIDOR. RR 24-32. TELE SHOWING SINUS WITH HR 80'S. VITAL SIGNS STABLE. EDEMA NOTED TO LEFT UPPER EXTREMITY. LEFT UPPER ARM FISTULA WNL. PPP. BOWEL TONES PRESENT. PATIENT STATES ABDOMEN IS "SORE" FROM NEW PEG TUBE PLACEMENT YESTERDAY. NEPRO BOLUS TUBE FEED THIS AM WNL. PATIENT COMPLAINS OF PAIN "ALL OVER" AND IS NOT ABLE TO DEFINE SPECIFIC LOCATION. PRECEDEX INFUSING, GOAL TO TITRATE DOWN. ANTIBIOTICS INFUSED THIS AM. RIGHT GROIN CENTRAL LINE WNL. WILL CONTINUE TO MONITOR.
--- NOTE | 2021-07-01 11:06 | NUR ---
PT COMPLAINS OF CHEST PAIN DESCRIBING IT PRESSURE. AT THIS TIME PATIENT ALSO EXPRESSES ANXIETY. TELE SHOWING SINUS TACH WITH HR ELEVATED IN 120'S. EKG DONE, NO CHANGES IN EKG COMPARED TO LAST EKG. DR. JOE CALLED AND UPDATED. TROPONIN ORDERED. ATIVAN GIVEN PER EMAR FOR ANXIETY. PATIENT STATES PAIN IS NOW GONE. SLEEPING ON AND OFF. VITAL SIGNS STABLE. PLACED BACK ON BIPAP DUE TO INCREASED WORK OF BREATHING WITH ANXIETY.
--- NOTE | 2021-07-01 18:56 | NUR ---
SHIFT SUMMARY: NO ACUTE CHANGES. PATIENT BACK AND FORTH ON BIPAP AND NC WORK OF BREATHING INCREASED. AT THIS TIME ON NASAL CANNULA 8L SATING MID 90'S. VITAL SIGNS STABLE. TELE REMAINS UNCHANGED. NO MORE SIGNS OF CHEST PAIN. BOLUS TUBE FEED X4 THIS SHIFT. FIRST TWO FEEDS EACH 237ML. THIRD FEED 120ML. AND FOURTH FEED 60ML. PATIENT WANTING TO DECREASE TUBE FEED AMOUNT SHE FELT MORE FULL THROUGHOUT THE DAY. 1 LARGE BOWEL MOVEMENT AND SMALL URINE OUTPUT. PRECEDEX INFUSING BUT TITRATED DOWN THIS SHIFT. CALL LIGHT IN REACH. WILL REPORT OFF TO ONCOMING RN.
--- NOTE | 2021-07-02 05:45 | NUR ---
Shift Summary Pt has been agitated and anxious throughout the night. BP and HR elevates during episodes of agitation. RR has remained consistently rapid at 28-35. Pt is currently on BiPAP at 15/10 90%. Pt had multiple episodes of O2 desaturation that initiated rapidly and recovered slowly. Attempted titration on NC before switching to BiPAP. Pt frequently c/o generalized pain/discomfort that was addressed with medication via MAR or with repositioning. No other acute changes noted.
[2021-07-02 08:30] LABS: Calcium, Blood 8.3 mg/dL (8.5-10.1); Creatinine, Blood 2.89 mg/dL (0.40-1.00); Potassium, Blood 4.6 mmol/L (3.5-5.5)
--- NOTE | 2021-07-02 14:57 | NUR ---
DIALYSIS PT FRIENDLY POPPY CORDON AND I PUT HER ON. PUT A RESTRAINT ON HER ARM BEFORE PLACING THE NEEDLES. EXPLAINED IT TO THE PT. IN THE PAST SHE MOVED HER ARM AROUND ALOT. SHE HAD NO OBJECTIONS. ABOUT 1259, SHE STARTED TRYING TO USE HER ARM. I EXPLAINED AGAIN THAT NEEDLE WERE LARGE AND COULD BE PULLED OUT. CAUSING BLEEDING. SHE BECAME ANGRY AND WANTED TO END THE TX. POPPY EXPLAINED THAT IF HER LABS CALLED FOR IT, THAT DR CLINE MAY WANT TO RUN HER TOMORROW. THAT SHE SHOULD FINISH OUT TODAY. REMINDED HER THAT SHE WAS ON A EVERY DAY SCHEDULE. SHE SAID SHE WANTED OFF FOR EVER. WE ASKED IF SHE MEANT COMFORT CARE. SHE SAID YES. PUT IN AN ORDER FOR PALLITIVE CARE. DR CLINE CAME IN. SAID SHE WANTED TO TALK TO HER AND HER TOGETHER. TOLD ME TO TAKE HER OFF AND PLAN FOR THURS.
--- NOTE | 2021-07-02 19:42 | NUR ---
SHIFT SUMMARY PT A/O X3-4; ANXIOUS T/O SHIFT. PT HR 110-120'S WITH O2 SATS >90% ON 6-8L NC. PT HAD DIALYSIS STOPPED EARLY PER PT REQUEST. PT TITRATED OFF PRECEDEX. FEMORAL CENTRAL LINE REMOVED DURING SHIFT. PT TUBE FEEDING WAS MINIMAL PER PT REQUEST; DURING FEEDS, PT WOULD ASK TO STOP AFTER 20-30 MLS AT A TIME WITH THE 30ML FLUSHES BEFORE AND AFTER THE BOLUS.PT CONTACTED AND UPDATED BY THIS RN.
[2021-07-03 04:37] LABS: Bun/Creatinine Ratio 15.7 (12.0-20.0); Calcium, Blood 9.5 mg/dL (8.5-10.1); Creatinine, Blood 2.23 mg/dL (0.40-1.00); Potassium, Blood 3.6 mmol/L (3.5-5.5)
--- NOTE | 2021-07-03 04:56 | NUR ---
RESP STATUS PT ON 6-8L CANNULA AT BEGIINING OF SHIFT. TOWARDS 0000, PT HAVING NOTICEABLE STRIDOR AND INCREASED WOB. RT TO ROOM, DEEP SUCTIONED PT AND COMPLETED BREATHING TREATMENT. PT ALSO RECEIVED IV MEDS FOR ANXIETY. DESPITE ALL OF THIS, PT STILL WITH INCREASED WOB AND DESATTING TO 85%. PT PLACED BACK ON BIPAP MASK ATTACHED TO VENT. SETTINGS 70% FIO2, PEEP 10, PRESSURE SUPPORT 15. SPO2 >92%. LUNG SOUNDS UNCHANGED.
--- NOTE | 2021-07-03 06:34 | NUR ---
ASSUMED CARE OF PATIENT AT 1900. PATIENT A/OX4 BUT ANXIOUS. BEGINNING OF SHIFT PATIENT WAS ON 8L NC AND SATTING ABOVE 90%, AROUND MIDNIGHT SHE DESATTED AND NEEDED TO BE PLACED ON BIPAP. PATIENT DOESN'T LIKE THE MASK AND REPEATEDLY HAS TRIED TO PULL IT OFF OR PULL APART THE TUBING. EDUCATED PATIENT ON WHY IT'S IMPORTANT TO KEEP THE MASK ON AND PATIENT IS STILL VERY UPSET ABOUT IT. INSPIRATORY WHEEZING NOTED DESPITE RT SUCTIONING AGAIN DURING THE NIGHT. ROSI EDEMA WITH L AV FISTULA WITH BRUIT/THRILL. WILL REPORT TO DAYSHIFT NURSE.
[2021-07-03] MEDS ORDERED: AMLO10 PO (08:37)
[2021-07-03] MEDS ORDERED: Hydroxyzine HCl25 MG PO (08:38)
[2021-07-03] MEDS ORDERED: ARAVA10 M1 PO (08:40)
[2021-07-03] MEDS ORDERED: ZEGERID 20 MG PO (08:41)
[2021-07-03] MEDS ORDERED: ONDA4SO PO (08:42)
[2021-07-03] MEDS ORDERED: SERT25 PO (08:43)
[2021-07-03] MEDS ORDERED: TORSE20 PO (08:44)
--- NOTE | 2021-07-03 10:15 | NUR ---
PT HAS BEEN ALERT THIS AM, BUT HAVING O2 DESATING. RT WAS ABLE TO DEEP SUCTION AND AND O2 SAT IMPROVE AND PT IS ON 13L PER RT. PT HAD INCREASED HR 120s AND WAS GIVEN MORNING MEDICATION. THIS WILL BE MONITORED AND TREATED PER EMAR. REPORT GIVEN TO EFREN LAWSON SHE IS TAKING OVER CARE.
--- NOTE | 2021-07-03 10:22 | NUR ---
[facility] of Care Received report from Day shift RN. Pt is awake and alert sitting up in bed. She is oriented to herself, situation, place and month, but her words are barely a whisper. Fistula to LUE is positive for a bruit/thrill. She has her high flow nasal canula on @ 13 LPM and her sats are at 93%. Per report jeff voiced to previous RN that she does not want to be a full code and there was some discussion of DC home on hospice. Pt reports to this RN that she does not want to be intubated again. Palliative care is on board and has been reaching out to her family. Pt has her call light in reach and reports knowing when/how to use it. She has her cell phone and personal items in reach.
--- NOTE | 2021-07-03 11:29 | NUR ---
Spoke with hospitalist Dr England and discussed case. Pt know longer wants dialysis and would benefit from discussion regarding goals of care. Pt resting in bed and appears dyspneic as evidenced by respiratory rate and work of breathing. Pt not able to communicate adequatately verbly. Pt does confirm no longer wanting dialysis. Discussed comfort care as an option and educated on hospice philosophy. Pt appears to understand. Pt confirms wanting to focus on comfort by noding her head up and down when asked if this is her goal. Asked questions to Pt to assess her level of understanding. Asked questions such as color of clothing this RN is wearing, if this RN is wearing a watch, and if there is a television in her room. Pt answers all questions appropriately with head nods. Called and spoke with Pt's Guillermo. Engaged in therapeutic conversation regarding Pt's wishes. Guillermo is unsure about being on board with her decision and requests to come visit her. Confirmed with supervisor propellant charge loading Pauline this will be allowed. Discussed the importance of respecting Pt's wishes and consideration of quality of life. Guillermo appears to understand. Palliative Care will remain available.
--- NOTE | 2021-07-03 12:21 | NUR ---
Update Palliative care met with the pt who voiced her wishes about her code status and ongoing care. Based on the pt wishes as discussed with the palliative care RN and Dr Galvan, the pt is now comfort care. The is at the bedside and is in agreement with this plan of care. The pt is sleeping now and her respirations are shallow and in the 30's.The is updating family.
--- NOTE | 2021-07-03 12:33 | NUR ---
Barbara supportive visit. Pt's spouse Guillermo has arrived. Offered supportive visit and answered questions. Guillermo tearful and this RN offered emotional support. Guillermo is in agreement with Pt's goals for comfort care. Per 's request called and spoke with Sample Washer Jose. Jose will come offer spiritual support. Spoke with Dr Day and discussed case. Placed comfort care, comfort care order set, and D/C maintenance medications per V/O from Dr Day. Palliative Care will remain available.
--- NOTE | 2021-07-03 14:46 | NUR ---
Spiritual care visit conducted. Patient is minimally responsive and Zack, patient's spouse is bedside. Zack immediately tells me about his emotional/spiritual distress. He talks about the patient's daughter that has been agry at him for putting patient on comfort care so we talk about patient's wishes and what her body is telling us. He talks about his struggles with God and sudha and we discuss what his belief system would tell him about God, and dying. I normalize Zack's experience, and provide therapeutic listening, pastoral litigation counsel, a calming presence and prayer. Zack responds well and shows signs of increased peace. I will continue to remain available to patient and family.
--- NOTE | 2021-07-03 16:32 | NUR ---
Shift Summary Pt is comfort care. Her has been at the bedside since this afternoon and [place] Her brother came for less than 5 minutes to say goodbye and then left. The pt is no longer arrousable since early this afternoon. She has had some signs of pain and has been medicated as ordered. She currently looks comfortable and is not in any distress. Skin care has been done along with oral care. Palliative care and the fabric worker fitter have both been in to support the . A comfort cart was ordered for the family and is now in the room. The family is emotional but understanding and they are offering her comfort.
--- NOTE | 2021-07-04 04:58 | NUR ---
SHIFT SUMMARY NO ACUTE CHANGES THIS SHIFT. PT ON COMFORT CARE, PT BEING PROVDED CC MEDS ORDERED TO AID IN AIR HUNGER WELL PT'S CHRONIC PAIN ALONGSIDE METHADONE USE. AT BEGINNING OF SHIFT, PT SITTING UP, ABLE TO MAKE A FEW NEEDS KNOWN BUT FOR THE MOST PART, LETHARGIC. STATED FEELING SOB AND IN PAIN AND WANTED MEDS, PROVIDED. FAMILY IN RROM AT BEGINNING OF SHIFT WELL AROUND 0000. FAMILY EDUCATED ON DYING PROCESS, FAMILY STATES SATISFACTION WITH MEDICATION REGIMEN. PT WITH ,MULTIPLE BM'S THIS SHIFT, HAS REMAINED, SINCE FAMILY LEFT, LETHARGIC AND SLEEPING.
--- NOTE | 2021-07-04 06:30 | NUR ---
TIME OF 06 PT MEDICATED FOR AIR HUNGER/PAIN AT 0530. PT HAD TOLERATED THESE MEDICATIONS WELL T/O THE NIGHT. THIS RN ASSESSED PT AT 0545, PT RR >24 WITH CONSISTENT "GUPPY BREATHING" THAT SHE HAD BEEN PRESENTING WITH OFF AND ON T/O THE NIGHT. PT NOT REACTIVE TO TOUCH. PRESENTED COMFORTABLE POST DOSE. FAMILY NOT IN ROOM THEY HAD LEFT IN THE MIDDLE OF THE NIGHT. AT 0605, AID MISHAYLA CAME TO THIS RN STATING PT HAD STOPPED BREATHING. THIS RN AND MANUSCRIPTS ARCHIVIST TO ROOM, ASSESSED, PT PRONOUNCED AT 06. CALLED [phone]. UPDATED. STATES AZAR DIAZ OF THE [facility] IS THE FAMILIES CHOICE. APPROPRIATE PROVIDERS/DONOR LINE/RESOURCES UPDATED. AWAITING RELEASE OF BODY. AID STARTED POST MORTEM CARE.
== END 2021-07-04 10:19 | DRG 870 ==
LOC: ER 04:09 → ERHOLD 05:25 → PCU 05:25
PROVIDERS: Emergency Medicine; Family Medicine; Internal Medicine Critical Care Medicine; Student in an Organized Health Care Education/Training Program; ADMIT Internal Medicine
PROC: 5A12012 Performance of Cardiac Output, Single, Manual (ICD-10-PCS; principal; 2021-06-24)
PROC: 5A1955Z Respiratory Ventilation, Greater than 96 Consecutive Hours (ICD-10-PCS; 2021-06-24)
PROC: 0BH17EZ Insertion of Endotracheal Airway into Trachea, Via Natural or Artificial Opening (ICD-10-PCS; 2021-06-24)
PROC: 06HY33Z Insertion of Infusion Device into Lower Vein, Percutaneous Approach (ICD-10-PCS; 2021-06-24)
PROC: 0BC68ZZ Extirpation of Matter from Right Lower Lobe Bronchus, Via Natural or Artificial Opening Endoscopic (ICD-10-PCS; 2021-06-25)
PROC: 5A1D70Z Performance of Urinary Filtration, Intermittent, Less than 6 Hours Per Day (ICD-10-PCS; 2021-06-26)
DX: A41.9 Sepsis, unspecified organism (principal); J18.9 Pneumonia, unspecified organism; J96.21 Acute and chronic respiratory failure with hypoxia; J96.22 Acute and chronic respiratory failure with hypercapnia; J69.0 Pneumonitis due to inhalation of food and vomit; Z66 Do not resuscitate; Z51.5 Encounter for palliative care; I12.0 Hypertensive chronic kidney disease with stage 5 chronic kidney disease or end stage renal disease; J44.0 Chronic obstructive pulmonary disease with (acute) lower respiratory infection; J44.1 Chronic obstructive pulmonary disease with (acute) exacerbation; E46 Unspecified protein-calorie malnutrition; R78.81 Bacteremia; Z20.822 Contact with and (suspected) exposure to COVID-19; I46.9 Cardiac arrest, cause unspecified; N18.9 Chronic kidney disease, unspecified; M06.9 Rheumatoid arthritis, unspecified; R19.7 Diarrhea, unspecified; K21.9 Gastro-esophageal reflux disease without esophagitis; R13.10 Dysphagia, unspecified; Z68.32 Body mass index [BMI] 32.0-32.9, adult; D63.1 Anemia in chronic kidney disease; E87.6 Hypokalemia; F17.210 Nicotine dependence, cigarettes, uncomplicated; Z93.1 Gastrostomy status; Z85.21 Personal history of malignant neoplasm of larynx; Z88.0 Allergy status to penicillin; Z99.2 Dependence on renal dialysis; Z88.1 Allergy status to other antibiotic agents; Z79.52 Long term (current) use of systemic steroids; Z79.899 Other long term (current) drug therapy; Z98.890 Other specified postprocedural states
CPT/HCPCS: 31720; 36415; 36556; 36600; 49465; 51702; 70450; 71045; 71260; 72125; 74177; 80048; 80053; 80069; 81001; 82803; 83605; 83735; 83880; 84100; 84145; 84484; 85014; 85018; 85025; 87040; 87070; 87077; 87106; 87186; 87205; 93005; 93010; 93306; 94003; 94640; 94660; 94762; 96365-59; 96372-59; 96375-59; 96376-59; 99291-25; A9270; C1751; C9113; G0480; J0360; J0881; J1630; J1644; J1650; J1956; J2060; J2185; J2270; J2405; J2704; J2920; J2930; J3010; J3370; J3480; J7030; J7050; Q9967; U0004